=== PATIENT | female | born 1940 | race Caucasian/White ===

== ENCOUNTER 2021-06-15 05:47 | Inpatient (IN) | payer MEDICARE, BC ==
[2021-06-08 16:29] LABS: BASOPHILS # (AUTO) 0.1 X10'3 (0-0.2); BASOPHILS % (AUTO) 0.8 % (0-1); EOSINOPHILS % (AUTO) 0 % (0-6); LYMPHOCYTES # (AUTO) 1.4 X10'3 (1.1-4.8); LYMPHOCYTES % (AUTO) 11.9 % (21-51); MEAN CORPUSCULAR HEMOGLOBIN 25.9 PG (27.0-31.0); MEAN CORPUSCULAR HGB CONC 31.4 g/dL (33.0-36.5); MEAN CORPUSCULAR VOLUME 82.3 FL (78-98); MEAN PLATELET VOLUME 7.3 FL (7.4-10.4); MONOCYTES # (AUTO) 0.5 X10'3 (0-0.9); MONOCYTES % (AUTO) 4.7 % (2-12); NEUTROPHILS # (AUTO) 9.6 X10'3 (1.8-7.7); NEUTROPHILS % (AUTO) 82.6 % (42-75); PRE OP PLATELET COUNT 583 X10'3 (140-440); RED BLOOD COUNT 4.13 X10'6 (4.20-5.60); RED CELL DISTRIBUTION WIDTH 19.3 % (11.5-14.5)
[2021-06-08 16:31] LABS: PRE OP HEMOGLOBIN 10.7 g/dL (12.0-16.0)
[2021-06-08 16:42] LABS: ALBUMIN 3.3 G/DL (3.4-5.0); ALBUMIN/GLOBULIN RATIO 0.8 (1.1-1.5); ALKALINE PHOSPHATASE 86 IU/L (46-116); BLOOD UREA NITROGEN 18 MG/DL (7-18); BUN/CREATININE RATIO 18.4 (6.6-38.0); CALCIUM 9.3 MG/DL (8.5-10.1); CHLORIDE 104 MMOL/L (99-107); CREATININE 0.98 MG/DL (0.40-0.90); PRE OP ALT 19 U/L (30-65); PRE OP ANION GAP 6 (8-16); PRE OP AST 21 U/L (10-37); PRE OP BILIRUB, TOTAL 0.4 MG/DL (0.0-1.0); PRE OP POTASSIUM 4.9 MMOL/L (3.4-5.1); PRE OP SODIUM 139 MMOL/L (135-145); TOTAL CARBON DIOXIDE 29.2 MMOL/L (24-32); TOTAL PROTEIN 7.7 G/DL (6.4-8.2); eGFR 54 ML/MIN
[2021-06-08 16:44] LABS: PRE OP GLUCOSE 131 MG/DL (70-104)
[2021-06-08 17:24] LABS: ANISOCYTOSIS 2+; PLATELET ESTIMATE INCREASED; TOTAL CELLS COUNTED 100
[2021-06-08 17:26] LABS: POLYCHROMASIA FEW; SCHISTOCYTES FEW; TEAR DROP CELLS FEW
[2021-06-08 17:27] LABS: HYPOCHROMASIA 1+; TARGET CELLS FEW
[~2021-06-15] VITALS: Ht 157.5 cm; Wt 50.1 kg
[2021-06-15] VITALS (22 sets, daily range): BP systolic 99–141; BP diastolic 44–77
[~2021-06-15 05:47] MED LIST: CIPR-259 PO; CITA-109 PO; INDOCYANINE GREEN 25 MG/10 ML VIAL IV ONE; MALTODEXTRIN/FRUCTOSE 0.68 KCAL/ML LIQUID 296ML BOTTLE PO ONE; METR-159 PO; PRED5TAB PO; XAL0.005OS EACHEYE; ceFOXitin 2GM-NS 100mL ADDvant 100 ML IV ONE; famotidine 20mg tablet PO ONE; heparin, porcine 5000 units/ml vial SQ ONE; metroNIDAZOLE-Flagyl 500mg/NS 100ML IVPB IV ONE; ringers solution, lacted 1,000 ML IV SCH
[2021-06-15] MEDS ORDERED: LIDOcaine 1% (10mg/ml) 2ml vial ONE (06:35)
[2021-06-15] MEDS ORDERED: LIDOcaine 1% W/epiNEPHrine 1:100,000 20ml vial ONE (07:10)
[2021-06-15] MEDS ORDERED: BUPIVAcaine/PF 2.5mg/ml (0.25%) 10ml vial ONE (07:10)
[2021-06-15] MEDS ORDERED: mineral oil 10ml sterile, topical TP ONE ×2 (07:16→08:27)
[2021-06-15] MEDS ORDERED: midazolam 1 mg/ML 2ml injection ONE (07:28)
[2021-06-15] MEDS ORDERED: fentaNYL /PF 50mcg/ml 5ml ampule ONE (07:28)
[2021-06-15] MEDS ORDERED: sevoflurane 250ml liquid IH ONE (07:46)
[2021-06-15] MEDS ORDERED: LIDOcaine 2% (20mg/ml) 5ml vial ONE (08:48)
[2021-06-15] MEDS ORDERED: rocuronium 10mg/ml inj IV ONE ×2 (08:48→09:29)
[2021-06-15] MEDS ORDERED: propofol inj 20 ML IV ONE (08:48)
[2021-06-15] MEDS ORDERED: hydrocortisone sod succ/PF 100mg/2ml inj. ONE (08:48)
[2021-06-15] MEDS ORDERED: ondansetron/PF 4mg/2ml inj ONE (08:48)
[2021-06-15] MEDS ORDERED: proCHLORperazine 10 MG/2 ml inj IV PRN (09:20)
[2021-06-15] MEDS ORDERED: HYDROmorphone/PF 0.2 MG/ML SYRINGE IV PRN ×2 (09:20)
[2021-06-15] MEDS ORDERED: hydrALAZINE 20mg/ml inj. IV PRN (09:20)
[2021-06-15] MEDS ORDERED: labetalol 20mg/4ml (5mg/ml) syringe IV PRN (09:20)
[2021-06-15] MEDS ORDERED: ondansetron/PF 4mg/2ml inj IV PRN (09:20)
[2021-06-15] MEDS ORDERED: acetaminophen 1,000mg/100ml IV 100 ML IV PRN (09:20)
[2021-06-15] MEDS ORDERED: meperidine/PF 25mg/ml syringe IV PRN (09:20)
[2021-06-15] MEDS ORDERED: ringers solution, lacted 1,000 ML IV SCH (09:20)
[2021-06-15] MEDS ORDERED: morphine 2 MG/ML inj. syringe IV PRN (09:20)
[2021-06-15] MEDS ORDERED: ePHEDrine 50MG/ML INJ. ONE (09:30)
[2021-06-15] MEDS ORDERED: povidone-iodine 10% topical ointment 28.4gm TP ONE (10:17)
[2021-06-15] MEDS ORDERED: sugammadex 200mg/2ml injection IV ONE (11:17)
--- NOTE | 2021-06-15 11:47 | NUR ---
Received from OR via BED IN STABLE CONDITION, accompanied by Anesthesiologist and FRAME NAILER report given by FRAME NAILER AND Anesthesiolgist. Addendum: 06/15/21 at 1226 by Mariela Evans RN Amended: Links added.
[2021-06-15] MEDS ORDERED: naloxone 0.4 mg/ml inj IV PRN (12:00)
[2021-06-15] MEDS ORDERED: CADD PCA waste documentation MC PRN (12:00)
[2021-06-15] MEDS: morphine 4 MG/ML inj SYRINge IV PRN ×2 (12:16→12:37)
[2021-06-15] MEDS ORDERED: HYDROmorph./NS 0.2 mg/ml CADD 100 ML IV SCH (12:30)
[2021-06-15] MEDS ORDERED: fluconazole-Diflucan 200mg/NS 100 ML IV ONE (13:00)
--- NOTE | 2021-06-15 13:47 | NUR ---
PATIENT TRANSFERRED FROM PACU IN STABLE CONDITION TO ROOM AFTER REPORT GIVEN. PATIENT TRANSPORTED VIA BED WITH RN X2. Addendum: 06/15/21 at 1353 by Mariela Evans RN Amended: Links added.
[2021-06-15] MEDS: hydrocortisone sod succ/PF 100mg/2ml inj. IV SCH ×2 (14:00→20:00)
[2021-06-15] MEDS: metroNIDAZOLE-Flagyl 500mg/NS 100 ML IV SCH ×2 (15:24→22:52)
[2021-06-15] MEDS: potassium CL 20mEq in D5-1/2NS 1,000 ML IV SCH (15:25)
[2021-06-15] MEDS: ceFOXitin 1 GM/D5W 50mL IVPB 100 ML IV SCH (16:29)
[2021-06-15] MEDS: morphine 2 MG/ML inj. syringe IV PRN ×2 (17:52→22:50)
--- NOTE | 2021-06-15 18:22 | NUR ---
Problems reprioritized. Patient report given, questions answered & plan of care reviewed with Jones GARZA.
[2021-06-15] MEDS: heparin, porcine 5000 units/ml vial SQ SCH (20:01)
[2021-06-16] MEDS: ceFOXitin 1 GM/D5W 50mL IVPB 100 ML IV SCH (00:04)
--- NOTE | 2021-06-16 01:20 | NUR ---
PT ARRIVED TO THE FLOOR FROM PACU @ 1350 ON DAYS. WHEN I STARTED THE PT HAD ONLY HAD 3 FREQUENT VITALS DONE. WE FINISHED ALL HER FREQUENT VITALS AND CHARTED THEM ON [employer].
[2021-06-16] MEDS: hydrocortisone sod succ/PF 100mg/2ml inj. IV SCH ×3 (02:16→14:40)
[2021-06-16] MEDS: morphine 2 MG/ML inj. syringe IV PRN ×4 (03:49→22:13)
[2021-06-16 04:00] VITALS: BP 124/60
[2021-06-16] MEDS: potassium CL 20mEq in D5-1/2NS 1,000 ML IV SCH ×3 (04:47→22:56)
--- NOTE | 2021-06-16 06:37 | NUR ---
Patient in room [facility]. I have received report from Jones GARZA and had the opportunity to ask questions and assume patient care.
[2021-06-16 06:42] LABS: BASOPHILS % (AUTO) 0.1 % (0-1); EOSINOPHILS % (AUTO) 0 % (0-6); HEMATOCRIT 27.8 % (35.0-45.0); HEMOGLOBIN 8.7 g/dl (12.0-16.0); LYMPHOCYTES # (AUTO) 0.6 X10'3 (1.1-4.8); LYMPHOCYTES % (AUTO) 4.6 % (21-51); MEAN CORPUSCULAR HEMOGLOBIN 25.8 PG (27.0-31.0); MEAN CORPUSCULAR HGB CONC 31.4 g/dL (33.0-36.5); MONOCYTES # (AUTO) 0.6 X10'3 (0-0.9); MONOCYTES % (AUTO) 4.4 % (2-12); NEUTROPHILS # (AUTO) 11.8 X10'3 (1.8-7.7); NEUTROPHILS % (AUTO) 90.9 % (42-75); PLATELET COUNT 357 X10'3 (140-440); RED BLOOD COUNT 3.39 X10'6 (4.20-5.60); RED CELL DISTRIBUTION WIDTH 20.4 % (11.5-14.5)
[2021-06-16 06:46] LABS: ALBUMIN 2.4 G/DL (3.4-5.0); ANION GAP 7 (8-16); BLOOD UREA NITROGEN 6 MG/DL (7-18); BUN/CREATININE RATIO 9.2 (6.6-38.0); CALCIUM 7.1 MG/DL (8.5-10.1); CHLORIDE 109 MMOL/L (99-107); CREATININE 0.65 MG/DL (0.40-0.90); SODIUM 141 MMOL/L (135-145); TOTAL CARBON DIOXIDE 24.7 MMOL/L (24-32); eGFR 87 ML/MIN
--- NOTE | 2021-06-16 06:46 | NUR ---
Problems reprioritized. Patient report given, questions answered & plan of care reviewed with HERMINIA. Addendum: 06/16/21 at 0646 by Franklin Bass RN Amended: Links added.
[2021-06-16 06:51] LABS: GLUCOSE 152 MG/DL (70-104); POTASSIUM 4.4 MMOL/L (3.5-5.1)
[2021-06-16 07:00] VITALS: BP 110/54
[2021-06-16] MEDS: fluconazole-Diflucan 100MG/NS 50 ML IV SCH (07:47)
[2021-06-16] MEDS: heparin, porcine 5000 units/ml vial SQ SCH ×2 (07:47→20:20)
[2021-06-16] MEDS: metroNIDAZOLE-Flagyl 500mg/NS 100 ML IV SCH ×3 (07:48→23:57)
[2021-06-16 08:00] LABS: ANISOCYTOSIS 3+; HYPOCHROMASIA 1+; MICROCYTOSIS 1+; PLATELET ESTIMATE NORMAL
[2021-06-16] MEDS ORDERED: ceFOXitin 1 GM/D5W 50mL IVPB 100 ML IV ONE (08:00)
[2021-06-16] MEDS ORDERED: ceFOXitin inj 1,000 MG in dextrose 5%-water 100 ML IV SCH (08:00)
[2021-06-16 11:08] LABS: PREALBUMIN 18.6 MG/DL (19-36)
[2021-06-16 11:27] VITALS: BP 129/60
[2021-06-16] MEDS ORDERED: citalopram 20mg tablet PO ONE (14:50)
[2021-06-16] MEDS: ceFOXitin inj 1,000 MG in normal saline 100ml IV soln 100 ML IV SCH (16:40)
[2021-06-16 18:00] VITALS: BP 137/54
--- NOTE | 2021-06-16 18:22 | NUR ---
Problems reprioritized. Patient report given, questions answered & plan of care reviewed with ALISON ROSAS RN.
--- NOTE | 2021-06-16 18:30 | NUR ---
Patient in room [facility]. I have received report from HERMINIA GARZA and had the opportunity to ask questions and assume patient care.
[2021-06-16] MEDS: latanoprost 0.005% 2.5ml ophthalmic drops EACHEYE SCH (20:25)
[2021-06-17] VITALS: BP 142/64
[2021-06-17] MEDS: ceFOXitin inj 1,000 MG in normal saline 100ml IV soln 100 ML IV SCH ×3 (01:34→16:46)
[2021-06-17] MEDS: morphine 2 MG/ML inj. syringe IV PRN ×3 (04:59→19:35)
[2021-06-17 06:25] LABS: BASOPHILS % (AUTO) 0.1 % (0-1); EOSINOPHILS # (AUTO) 0.1 X10'3 (0-0.9); HEMATOCRIT 27.5 % (35.0-45.0); HEMOGLOBIN 8.5 g/dl (12.0-16.0); LYMPHOCYTES # (AUTO) 2.3 X10'3 (1.1-4.8); LYMPHOCYTES % (AUTO) 16.8 % (21-51); MEAN CORPUSCULAR HEMOGLOBIN 25.5 PG (27.0-31.0); MEAN CORPUSCULAR VOLUME 82.1 FL (78-98); MEAN PLATELET VOLUME 7.7 FL (7.4-10.4); MONOCYTES # (AUTO) 1.4 X10'3 (0-0.9); MONOCYTES % (AUTO) 10.3 % (2-12); NEUTROPHILS # (AUTO) 9.6 X10'3 (1.8-7.7); NEUTROPHILS % (AUTO) 71.8 % (42-75); PLATELET COUNT 353 X10'3 (140-440); RED BLOOD COUNT 3.35 X10'6 (4.20-5.60); RED CELL DISTRIBUTION WIDTH 20.1 % (11.5-14.5); WHITE BLOOD COUNT 13.4 X10'3 (4.5-11.0)
--- NOTE | 2021-06-17 06:30 | NUR ---
Problems reprioritized. Patient report given, questions answered & plan of care reviewed with HERMINIA GARZA.
[2021-06-17 06:52] LABS: ALBUMIN 2.4 G/DL (3.4-5.0); ANION GAP 5 (8-16); BLOOD UREA NITROGEN 5 MG/DL (7-18); BUN/CREATININE RATIO 6.9 (6.6-38.0); CALCIUM 7.5 MG/DL (8.5-10.1); CHLORIDE 112 MMOL/L (99-107); CREATININE 0.72 MG/DL (0.40-0.90); GLUCOSE 91 MG/DL (70-104); POTASSIUM 3.6 MMOL/L (3.5-5.1); SODIUM 142 MMOL/L (135-145); TOTAL CARBON DIOXIDE 24.8 MMOL/L (24-32); eGFR 78 ML/MIN
[2021-06-17] MEDS: metroNIDAZOLE-Flagyl 500mg/NS 100 ML IV SCH ×2 (07:33→16:46)
[2021-06-17] MEDS: citalopram 20mg tablet PO SCH (07:33)
[2021-06-17] MEDS: fluconazole-Diflucan 100MG/NS 50 ML IV SCH (07:33)
[2021-06-17] MEDS: predniSONE 5mg tablet PO SCH (07:34)
[2021-06-17] MEDS: heparin, porcine 5000 units/ml vial SQ SCH ×2 (07:34→19:34)
[2021-06-17 07:43] LABS: ANISOCYTOSIS 3+; PLATELET ESTIMATE NORMAL
[2021-06-17 07:44] LABS: MICROCYTOSIS 1+
[2021-06-17 07:47] VITALS: BP 141/60
[2021-06-17] MEDS: ondansetron/PF 4mg/2ml inj IV PRN ×2 (10:20→19:34)
[2021-06-17 11:07] VITALS: BP 142/62
[2021-06-17 13:28] LABS: C-REACTIVE PROTEIN 6.36 MG/DL (0.0-0.5)
[2021-06-17] MEDS: potassium CL 20mEq in D5-1/2NS 1,000 ML IV SCH (17:20)
[2021-06-17 19:07] VITALS: BP 148/63
[2021-06-17] MEDS: latanoprost 0.005% 2.5ml ophthalmic drops EACHEYE SCH (19:35)
--- NOTE | 2021-06-17 22:00 | NUR ---
Patient in room [facility]. I have received report from HERMINIA GARZA and had the opportunity to ask questions and assume patient care.
[2021-06-17 23:32] VITALS: BP 142/67
[2021-06-18] MEDS: metroNIDAZOLE-Flagyl 500mg/NS 100 ML IV SCH ×4 (00:41→23:31)
[2021-06-18] MEDS: ondansetron/PF 4mg/2ml inj IV PRN ×2 (01:08→18:57)
--- NOTE | 2021-06-18 01:18 | NUR ---
patient c/o nausea, emesis of 100mls brownish color. medicated with zofran with some relief will continue to monitor
[2021-06-18] MEDS: ceFOXitin inj 1,000 MG in normal saline 100ml IV soln 100 ML IV SCH ×3 (01:58→16:56)
[2021-06-18] MEDS: morphine 2 MG/ML inj. syringe IV PRN ×5 (04:59→23:44)
--- NOTE | 2021-06-18 05:21 | NUR ---
patient nauseous and bloated, ambulated 100ft very fatigued. Dr Lyn paged for alternate nausea med. order received for Reglan, will continue to monitor
[2021-06-18 06:07] LABS: BASOPHILS # (AUTO) 0.1 X10'3 (0-0.2); BASOPHILS % (AUTO) 0.8 % (0-1); EOSINOPHILS # (AUTO) 0.3 X10'3 (0-0.9); EOSINOPHILS % (AUTO) 2.1 % (0-6); HEMATOCRIT 31.9 % (35.0-45.0); HEMOGLOBIN 10.2 g/dl (12.0-16.0); LYMPHOCYTES # (AUTO) 2.3 X10'3 (1.1-4.8); LYMPHOCYTES % (AUTO) 15.6 % (21-51); MEAN CORPUSCULAR HGB CONC 31.8 g/dL (33.0-36.5); MEAN CORPUSCULAR VOLUME 81.9 FL (78-98); MEAN PLATELET VOLUME 7.7 FL (7.4-10.4); MONOCYTES # (AUTO) 1.5 X10'3 (0-0.9); MONOCYTES % (AUTO) 10.5 % (2-12); NEUTROPHILS # (AUTO) 10.3 X10'3 (1.8-7.7); PLATELET COUNT 391 X10'3 (140-440); RED CELL DISTRIBUTION WIDTH 20.5 % (11.5-14.5); WHITE BLOOD COUNT 14.5 X10'3 (4.5-11.0)
[2021-06-18 06:27] LABS: ALBUMIN 2.1 G/DL (3.4-5.0); ANION GAP 6 (8-16); BLOOD UREA NITROGEN 5 MG/DL (7-18); BUN/CREATININE RATIO 6.8 (6.6-38.0); CALCIUM 7.2 MG/DL (8.5-10.1); CHLORIDE 108 MMOL/L (99-107); CREATININE 0.74 MG/DL (0.40-0.90); POTASSIUM 3.6 MMOL/L (3.5-5.1); SODIUM 138 MMOL/L (135-145); TOTAL CARBON DIOXIDE 24.5 MMOL/L (24-32); eGFR 75 ML/MIN
[2021-06-18 06:30] LABS: GLUCOSE 109 MG/DL (70-104)
--- NOTE | 2021-06-18 06:43 | NUR ---
Problems reprioritized. Patient report given, questions answered & plan of care reviewed with Heather GARZA.
[2021-06-18 07:10] VITALS: BP 112/51
[2021-06-18] MEDS: potassium CL 20mEq in D5-1/2NS 1,000 ML IV SCH (07:41)
[2021-06-18] MEDS: heparin, porcine 5000 units/ml vial SQ SCH ×2 (07:44→21:23)
[2021-06-18] MEDS: citalopram 20mg tablet PO SCH (07:45)
[2021-06-18] MEDS: predniSONE 5mg tablet PO SCH (07:45)
[2021-06-18] MEDS ORDERED: albumin (human) 25% 100 ML IV solution IV ONE (08:35)
--- NOTE | 2021-06-18 08:37 | NUR ---
Paged PICC RN for PICC placement. Also, Spoke to Radha with dietary regarding consult for TPN
--- NOTE | 2021-06-18 09:21 | NUR ---
TPN consult: Pt admit for colovesicular fistula repair. Pt s/p sigmoid colectomy POD #3. Pt on a clear liquid diet with 25% PO intake first two documented meals however currently documented as NPO despite active diet order. TC to RN to inquire about diet order, RN to clarify with MD. DRAKEM 06/14, with a post-op ileus per MD note. Pt pending PICC placement at this time and to begin TPN. Recommendations below have been d/w clinical pharmacist. Will continue to follow closely. Recommendations: 1) Once PICC placed, continuous 2:1 Clinimix-E 03/26 with goal rate of 60 mL/hr with additional 125 mL 20% intralipids at 10.42 mL/hr for 12 hours. In total to provide 1565 mL total volume/day, 1517 kcal, 72 g AA, 288 g dextrose (3.95 mg/kg/min dext load), and 25 g lipids 2) Prealbumin and TG q Tuesday/ 3) Daily weights 4) Advance to low residue diet as medically indicated 5) Bowel care per rx Addendum: 06/18/21 at [address] Amended: Links added.
[2021-06-18] MEDS: fluconazole-Diflucan 100MG/NS 50 ML IV SCH (10:52)
[2021-06-18 11:00] VITALS: BP 132/59
--- NOTE | 2021-06-18 14:49 | NUR ---
F/u: Received TC from clinical pharmacist that PICC line unable to be placed today and pending d/w MD regarding possible initiation of PPN while pending PICC placement. PPN recommendations below for IF pt to receive PPN. TPN consult: Pt admit for colovesicular fistula repair. Pt s/p sigmoid colectomy POD #3. Pt on a clear liquid diet with 25% PO intake first two documented meals however currently documented as NPO despite active diet order. TC to RN to inquire about diet order, RN to clarify with MD. RAJNI 06/14, with a post-op ileus per MD note. Pt pending PICC placement at this time and to begin TPN. Recommendations below have been d/w clinical pharmacist. Will continue to follow closely. Recommendations: 1) Once PICC placed, continuous 2:1 Clinimix-E 5/20 with goal rate of 60 mL/hr with additional 125 mL 20% intralipids at 10.42 mL/hr for 12 hours. In total to provide 1565 mL total volume/day, 1517 kcal, 72 g AA, 288 g dextrose (3.95 mg/kg/min dext load), and 25 g lipids 2) IF PPN: continuous 2:1 Clinimix-E 4.25/10 with goal rate of 85 mL/hr with additional 200 mL 20% intralipids to run at 16.67 mL/hr for 12 hours to provide 2240 mL total volume/day, 1440 kcal, 86.7 g AA, 204 g dextrose (2.80 mg/kg/min dext load), and 40 g lipids 3) Prealbumin and TG q Tuesday/ 4) Daily weights 5) Advance to low residue diet as medically indicated 6) Bowel care per rx Addendum: 06/18/21 at [address] Amended: Links added. Addendum: 06/18/21 at [address] Received TC from RN who states MD would like to start PPN until PICC access available for TPN. PPN recommendations were d/w clinical pharmacist.
--- NOTE | 2021-06-18 14:52 | NUR ---
Telephone call to Dr. Jc regarding the PICC RN not coming in today. Asked if he would like to start PPN until the patient has PICC access. He said yes, dietary notified. Will start PPN once orders are placed and it is sent up from pharmacy.
[2021-06-18] MEDS ORDERED: magnesium 2GM in 50ml NS 50 ML IV PRN (15:05)
[2021-06-18] MEDS ORDERED: magnesium 4gm in 100ml NS 100 ML IV PRN (15:05)
[2021-06-18] MEDS ORDERED: potassium Cl 20 mEq SR tablet PO PRN ×2 (15:05)
[2021-06-18] MEDS ORDERED: potassium Cl 40MEQ/1/2NS 520ml 520 ML IV PRN ×2 (15:05)
[2021-06-18] MEDS ORDERED: magnesium Cl slow-release 64mg tablet PO PRN (15:05)
[2021-06-18 16:07] LABS: MAGNESIUM 1.9 MG/DL (1.5-2.4); PHOSPHORUS 1.4 MG/DL (2.3-4.5); PREALBUMIN 14.3 MG/DL (19-36)
[2021-06-18] MEDS ORDERED: MVI, adult No.4 with vit. K 5 ML, ZINC/COPPER/MANGANESE/SELENIUM 0.5 ML, chromic chlori... IV SCH ×4 (17:00)
[2021-06-18 18:00] VITALS: BP 118/67
[2021-06-18] MEDS: normal saline 1000ml 1,000 ML IV SCH (18:35)
--- NOTE | 2021-06-18 18:53 | NUR ---
Problems reprioritized. Patient report given, questions answered & plan of care reviewed with KAYLA Kruse.
--- NOTE | 2021-06-18 18:56 | NUR ---
Spoke with pharmacist regarding PPN orders. he said it is okay to give the lipids through the PIV, and these are correct orders for a PIV.
[2021-06-18] MEDS: fat emulsion 20% inj. 100 ML IV SCH (20:00)
[2021-06-18] MEDS: MESSAGE TO NURSING IV SCH (20:00)
[2021-06-18] MEDS: K and/or MAG REPLACEMENT MC SCH (20:00)
[2021-06-18] MEDS: latanoprost 0.005% 2.5ml ophthalmic drops EACHEYE SCH (21:22)
--- NOTE | 2021-06-18 21:44 | NUR ---
No PICC line, unable to begin intralipids per orders.
[2021-06-18] MEDS: metoclopramide 5 mg/ml inj IV PRN (23:44)
[2021-06-18 23:48] VITALS: BP 146/57
[2021-06-19] MEDS: HYDROcodone/acetaminophen 5mg/325mg tablet PO PRN ×2 (01:21→08:55)
[2021-06-19] MEDS: ondansetron/PF 4mg/2ml inj IV PRN ×2 (01:25→20:31)
[2021-06-19] MEDS: ceFOXitin inj 1,000 MG in normal saline 100ml IV soln 100 ML IV SCH ×4 (01:52→16:03)
[2021-06-19] MEDS ORDERED: fat emulsion 20% inj. 100 ML IV SCH (02:00)
--- NOTE | 2021-06-19 06:06 | NUR ---
Problems reprioritized. Patient report given, questions answered & plan of care reviewed with KAYLA Oneil.
[2021-06-19 07:44] VITALS: BP 127/56
[2021-06-19 07:45] LABS: BASOPHILS # (AUTO) 0.1 X10'3 (0-0.2); BASOPHILS % (AUTO) 0.7 % (0-1); EOSINOPHILS # (AUTO) 0.3 X10'3 (0-0.9); EOSINOPHILS % (AUTO) 2.7 % (0-6); HEMATOCRIT 30.8 % (35.0-45.0); HEMOGLOBIN 9.9 g/dl (12.0-16.0); LYMPHOCYTES # (AUTO) 2.1 X10'3 (1.1-4.8); LYMPHOCYTES % (AUTO) 17.8 % (21-51); MEAN CORPUSCULAR HEMOGLOBIN 26.4 PG (27.0-31.0); MEAN CORPUSCULAR HGB CONC 32.2 g/dL (33.0-36.5); MEAN CORPUSCULAR VOLUME 81.9 FL (78-98); MEAN PLATELET VOLUME 7.5 FL (7.4-10.4); MONOCYTES # (AUTO) 1.1 X10'3 (0-0.9); MONOCYTES % (AUTO) 9.7 % (2-12); NEUTROPHILS # (AUTO) 8.1 X10'3 (1.8-7.7); NEUTROPHILS % (AUTO) 69.1 % (42-75); PLATELET COUNT 374 X10'3 (140-440); RED BLOOD COUNT 3.76 X10'6 (4.20-5.60); RED CELL DISTRIBUTION WIDTH 20.5 % (11.5-14.5); WHITE BLOOD COUNT 11.8 X10'3 (4.5-11.0)
[2021-06-19] MEDS: heparin, porcine 5000 units/ml vial SQ SCH ×2 (08:00→20:33)
[2021-06-19] MEDS: K and/or MAG REPLACEMENT MC SCH ×2 (08:00→20:00)
[2021-06-19 08:10] LABS: ALANINE AMINOTRANSFERASE 10 U/L (12-78); ALBUMIN 2.5 G/DL (3.4-5.0); ALBUMIN/GLOBULIN RATIO 0.8 (1.1-1.5); ALKALINE PHOSPHATASE 50 IU/L (46-116); ANION GAP 4 (8-16); ASPARTATE AMINO TRANSFERASE 15 U/L (10-37); BILIRUBIN,TOTAL 0.8 MG/DL (0.1-1.0); BLOOD UREA NITROGEN 4 MG/DL (7-18); BUN/CREATININE RATIO 5.7 (6.6-38.0); CALCIUM 7.3 MG/DL (8.5-10.1); CHLORIDE 105 MMOL/L (99-107); POTASSIUM 3.3 MMOL/L (3.5-5.1); SODIUM 137 MMOL/L (135-145); TOTAL CARBON DIOXIDE 27.7 MMOL/L (24-32); TOTAL PROTEIN 5.6 G/DL (6.4-8.2); eGFR 80 ML/MIN
[2021-06-19 08:14] LABS: GLUCOSE 105 MG/DL (70-104)
[2021-06-19] MEDS: predniSONE 5mg tablet PO SCH (08:55)
[2021-06-19] MEDS: citalopram 20mg tablet PO SCH (08:55)
[2021-06-19 09:00] LABS: ANISOCYTOSIS 3+; HYPOCHROMASIA 1+; PLATELET ESTIMATE NORMAL; POLYCHROMASIA 1+
--- NOTE | 2021-06-19 09:00 | NUR ---
IV infiltrated this AM, PICC RN will called said she will be here in the next 15min. Patients IV piggybacks will be hung once PICC Line access is established.
--- NOTE | 2021-06-19 09:57 | NUR ---
PICC RN at bedside
[2021-06-19 11:00] VITALS: BP 124/64
[2021-06-19] MEDS: metroNIDAZOLE-Flagyl 500mg/NS 100 ML IV SCH ×2 (11:31→16:03)
[2021-06-19] MEDS: normal saline 1000ml 1,000 ML IV SCH (11:31)
--- NOTE | 2021-06-19 11:56 | NUR ---
Updated Dr. Jc with lab values, and patient status. No new orders.
--- NOTE | 2021-06-19 12:26 | NUR ---
F/u: Noted PICC line was placed today. TC to clinical pharmacist who reports currently working on changing PN to TPN. Noted per hydrogen braze furnace operator intralipids not given overnight d/t no PICC placement, though per clinical pharmacist intralipids are okay to be given via PIV, d/w clinical pharmacist. TPN recommendations have been updated and d/w clinical pharmacist, see below. Will continue to follow closely. Recommendations: 1) Continuous 2:1 Clinimix-E 03/26 with goal rate of 63 mL/hr with additional 100 mL 20% intralipids at 8.33 mL/hr for 12 hours. In total to provide 1612 mL total volume/day, 1530 kcal, 75.6 g AA, 302.4 g dextrose (4.15 mg/kg/min dext load), and 20 g lipids 2) Prealbumin and TG q Tuesday/ 3) Daily weights 4) Advance to low residue diet as medically indicated 5) Bowel care per rx Addendum: 06/19/21 at [address] Amended: Links added.
[2021-06-19] MEDS ORDERED: Dextrose 10%-water IV solution 1,000 ML IV PRN (12:45)
[2021-06-19] MEDS: fluconazole-Diflucan 100MG/NS 50 ML IV SCH (12:49)
[2021-06-19] MEDS: MVI, adult No.4 with vit. K 5 ML, ZINC/COPPER/MANGANESE/SELENIUM 0.5 ML, chromic chlori... IV SCH ×4 (15:14)
--- NOTE | 2021-06-19 18:27 | NUR ---
Patient in room [facility]. I have received report from Clarice GARZA and had the opportunity to ask questions and assume patient care.
--- NOTE | 2021-06-19 18:30 | NUR ---
Problems reprioritized. Patient report given, questions answered & plan of care reviewed with KAYLA Mon.
[2021-06-19 19:15] VITALS: BP 143/63
[2021-06-19] MEDS: MESSAGE TO NURSING IV SCH (20:00)
[2021-06-19] MEDS: morphine 2 MG/ML inj. syringe IV PRN (20:32)
[2021-06-19] MEDS: fat emulsion 20% inj. 100 ML IV SCH (20:55)
[2021-06-19] MEDS: latanoprost 0.005% 2.5ml ophthalmic drops EACHEYE SCH (21:00)
[2021-06-20] VITALS: BP 138/61
[2021-06-20] MEDS: ceFOXitin inj 1,000 MG in normal saline 100ml IV soln 100 ML IV SCH ×4 (01:50→23:55)
[2021-06-20] MEDS: metroNIDAZOLE-Flagyl 500mg/NS 100 ML IV SCH ×4 (01:50→23:58)
[2021-06-20] MEDS: morphine 2 MG/ML inj. syringe IV PRN ×6 (01:53→23:49)
[2021-06-20] MEDS: metoclopramide 5 mg/ml inj IV PRN ×2 (01:53→07:58)
[2021-06-20] MEDS ORDERED: mag hydrox/Alum hydrox/simeth 30ml oral suspension PO PRN (04:00)
[2021-06-20 05:56] LABS: BASOPHILS # (AUTO) 0.1 X10'3 (0-0.2); BASOPHILS % (AUTO) 0.8 % (0-1); EOSINOPHILS # (AUTO) 0.2 X10'3 (0-0.9); EOSINOPHILS % (AUTO) 1.3 % (0-6); HEMATOCRIT 31.4 % (35.0-45.0); HEMOGLOBIN 9.9 g/dl (12.0-16.0); LYMPHOCYTES # (AUTO) 1.3 X10'3 (1.1-4.8); LYMPHOCYTES % (AUTO) 11.1 % (21-51); MEAN CORPUSCULAR HEMOGLOBIN 26.2 PG (27.0-31.0); MEAN CORPUSCULAR HGB CONC 31.5 g/dL (33.0-36.5); MEAN CORPUSCULAR VOLUME 83.3 FL (78-98); MEAN PLATELET VOLUME 7.8 FL (7.4-10.4); MONOCYTES # (AUTO) 1.3 X10'3 (0-0.9); MONOCYTES % (AUTO) 10.5 % (2-12); NEUTROPHILS # (AUTO) 9.2 X10'3 (1.8-7.7); NEUTROPHILS % (AUTO) 76.3 % (42-75); PLATELET COUNT 321 X10'3 (140-440); RED BLOOD COUNT 3.77 X10'6 (4.20-5.60); RED CELL DISTRIBUTION WIDTH 20.9 % (11.5-14.5)
[2021-06-20 06:23] LABS: ALANINE AMINOTRANSFERASE 6 U/L (12-78); ALBUMIN 2.3 G/DL (3.4-5.0); ALBUMIN/GLOBULIN RATIO 0.7 (1.1-1.5); ALKALINE PHOSPHATASE 55 IU/L (46-116); ANION GAP 5 (8-16); ASPARTATE AMINO TRANSFERASE 14 U/L (10-37); BILIRUBIN,TOTAL 0.5 MG/DL (0.1-1.0); BLOOD UREA NITROGEN 14 MG/DL (7-18); BUN/CREATININE RATIO 19.2 (6.6-38.0); CALCIUM 7.6 MG/DL (8.5-10.1); CHLORIDE 107 MMOL/L (99-107); CREATININE 0.73 MG/DL (0.40-0.90); GLUCOSE 145 MG/DL (70-104); PHOSPHORUS 1.9 MG/DL (2.3-4.5); POTASSIUM 3.8 MMOL/L (3.5-5.1); SODIUM 140 MMOL/L (135-145); TOTAL CARBON DIOXIDE 27.6 MMOL/L (24-32); TOTAL PROTEIN 5.6 G/DL (6.4-8.2); eGFR 77 ML/MIN
--- NOTE | 2021-06-20 06:42 | NUR ---
Patient in room [facility]. I have received report from KAYLA Mon and had the opportunity to ask questions and assume patient care.
--- NOTE | 2021-06-20 06:57 | NUR ---
Problems reprioritized. Patient report given, questions answered & plan of care reviewed with Shae GARZA.
[2021-06-20 07:00] VITALS: BP 142/65
[2021-06-20] MEDS: MVI, adult No.4 with vit. K 5 ML, ZINC/COPPER/MANGANESE/SELENIUM 0.5 ML, chromic chlori... IV SCH ×8 (07:41→22:03)
[2021-06-20] MEDS: fluconazole-Diflucan 100MG/NS 50 ML IV SCH (07:52)
[2021-06-20] MEDS: heparin, porcine 5000 units/ml vial SQ SCH ×2 (07:55→20:30)
[2021-06-20] MEDS: K and/or MAG REPLACEMENT MC SCH ×2 (08:00→20:00)
[2021-06-20] MEDS: citalopram 20mg tablet PO SCH (08:00)
[2021-06-20] MEDS: predniSONE 5mg tablet PO SCH (08:00)
[2021-06-20 09:42] LABS: C-REACTIVE PROTEIN 6.79 MG/DL (0.0-0.5)
[2021-06-20 11:00] VITALS: BP 124/59
[2021-06-20] MEDS ORDERED: potassium phosphate inj 15 MMOL in NS 250ml IV soln 250 ML IV ONE (12:30)
[2021-06-20] MEDS: ondansetron/PF 4mg/2ml inj IV PRN (14:03)
[2021-06-20 18:00] VITALS: BP 141/62
--- NOTE | 2021-06-20 18:47 | NUR ---
Problems reprioritized. Patient report given, questions answered & plan of care reviewed with KAYLA Mills.
--- NOTE | 2021-06-20 18:50 | NUR ---
Patient in room [facility]. I have received report from Shae Marcus and had the opportunity to ask questions and assume patient care.
[2021-06-20] MEDS: MESSAGE TO NURSING IV SCH (20:00)
[2021-06-20] MEDS: latanoprost 0.005% 2.5ml ophthalmic drops EACHEYE SCH (20:29)
[2021-06-20] MEDS: fat emulsion 20% inj. 100 ML IV SCH (20:52)
[2021-06-21 01:24] VITALS: BP 125/63
[2021-06-21] MEDS: morphine 2 MG/ML inj. syringe IV PRN ×8 (01:40→22:48)
[2021-06-21] MEDS: methylnaltrexone br 12mg/0.6ml inj***SubQ only SQ PRN (01:50)
--- NOTE | 2021-06-21 03:58 | NUR ---
24 hour urine collection started.
[2021-06-21] MEDS: ondansetron/PF 4mg/2ml inj IV PRN ×2 (06:38→18:02)
--- NOTE | 2021-06-21 06:47 | NUR ---
Problems reprioritized. Patient report given, questions answered & plan of care reviewed with Claire GARZA.
--- NOTE | 2021-06-21 06:56 | NUR ---
Patient in room [facility]. I have received report from KAYLA Mills and had the opportunity to ask questions and assume patient care.
[2021-06-21 07:00] VITALS: BP 106/53
[2021-06-21] MEDS: fluconazole-Diflucan 100MG/NS 50 ML IV SCH (08:00)
[2021-06-21] MEDS: K and/or MAG REPLACEMENT MC SCH ×2 (08:00→19:38)
[2021-06-21] MEDS: ceFOXitin inj 1,000 MG in normal saline 100ml IV soln 100 ML IV SCH ×3 (08:00→22:52)
[2021-06-21] MEDS: heparin, porcine 5000 units/ml vial SQ SCH ×2 (08:09→20:36)
[2021-06-21] MEDS: metoclopramide 5 mg/ml inj IV PRN (08:16)
[2021-06-21 08:21] LABS: BASOPHILS # (AUTO) 0.1 X10'3 (0-0.2); BASOPHILS % (AUTO) 0.7 % (0-1); EOSINOPHILS # (AUTO) 0.3 X10'3 (0-0.9); EOSINOPHILS % (AUTO) 2.6 % (0-6); HEMATOCRIT 29.2 % (35.0-45.0); HEMOGLOBIN 9.4 g/dl (12.0-16.0); LYMPHOCYTES # (AUTO) 1.4 X10'3 (1.1-4.8); LYMPHOCYTES % (AUTO) 11.6 % (21-51); MEAN CORPUSCULAR HEMOGLOBIN 26.3 PG (27.0-31.0); MEAN CORPUSCULAR HGB CONC 32.1 g/dL (33.0-36.5); MEAN CORPUSCULAR VOLUME 81.7 FL (78-98); MEAN PLATELET VOLUME 7.3 FL (7.4-10.4); MONOCYTES # (AUTO) 1.5 X10'3 (0-0.9); MONOCYTES % (AUTO) 13.2 % (2-12); NEUTROPHILS # (AUTO) 8.4 X10'3 (1.8-7.7); NEUTROPHILS % (AUTO) 71.9 % (42-75); PLATELET COUNT 270 X10'3 (140-440); RED BLOOD COUNT 3.57 X10'6 (4.20-5.60); RED CELL DISTRIBUTION WIDTH 21.4 % (11.5-14.5); WHITE BLOOD COUNT 11.6 X10'3 (4.5-11.0)
[2021-06-21 08:33] LABS: ALANINE AMINOTRANSFERASE 6 U/L (12-78); ALBUMIN 2.1 G/DL (3.4-5.0); ALBUMIN/GLOBULIN RATIO 0.7 (1.1-1.5); ALKALINE PHOSPHATASE 59 IU/L (46-116); ANION GAP 6 (8-16); ASPARTATE AMINO TRANSFERASE 13 U/L (10-37); BILIRUBIN,TOTAL 0.4 MG/DL (0.1-1.0); BLOOD UREA NITROGEN 22 MG/DL (7-18); BUN/CREATININE RATIO 36.1 (6.6-38.0); C-REACTIVE PROTEIN 5.21 MG/DL (0.0-0.5); CALCIUM 7.7 MG/DL (8.5-10.1); CHLORIDE 102 MMOL/L (99-107); CREATININE 0.61 MG/DL (0.40-0.90); GLUCOSE 145 MG/DL (70-104); MAGNESIUM 1.9 MG/DL (1.5-2.4); POTASSIUM 4.2 MMOL/L (3.5-5.1); SODIUM 136 MMOL/L (135-145); TOTAL CARBON DIOXIDE 28.5 MMOL/L (24-32); TOTAL PROTEIN 5.3 G/DL (6.4-8.2); eGFR > 90 ML/MIN
[2021-06-21] MEDS: predniSONE 5mg tablet PO SCH (09:13)
[2021-06-21] MEDS: metroNIDAZOLE-Flagyl 500mg/NS 100 ML IV SCH ×2 (09:13→16:09)
[2021-06-21] MEDS: citalopram 20mg tablet PO SCH (09:14)
[2021-06-21 11:00] VITALS: BP 108/42
[2021-06-21] MEDS: MVI, adult No.4 with vit. K 5 ML, ZINC/COPPER/MANGANESE/SELENIUM 0.5 ML, chromic chlori... IV SCH ×4 (15:03)
[2021-06-21] MEDS: normal saline 1000ml 1,000 ML IV SCH (16:49)
--- NOTE | 2021-06-21 18:21 | NUR ---
Problems reprioritized. Patient report given, questions answered & plan of care reviewed with Katie GARZA.
--- NOTE | 2021-06-21 18:34 | NUR ---
No c/o nausea on initial assessment, repositioned on R side. Shift report given to me by Claire GARZA. Questions asked and answered, care of patient assumed by me.
--- NOTE | 2021-06-21 19:32 | NUR ---
Zofran effective, ambulates in [place]ango w/ family. tolerates well.
[2021-06-21 19:38] VITALS: BP 132/54
[2021-06-21] MEDS: MESSAGE TO NURSING IV SCH (20:00)
[2021-06-21] MEDS: fat emulsion 20% inj. 100 ML IV SCH (20:36)
[2021-06-21] MEDS: latanoprost 0.005% 2.5ml ophthalmic drops EACHEYE SCH (21:16)
[2021-06-21 23:34] VITALS: BP 128/58
--- NOTE | 2021-06-21 23:52 | NUR ---
late entry - assessment completed at 1999. charted later in shift.
[2021-06-22] MEDS: metroNIDAZOLE-Flagyl 500mg/NS 100 ML IV SCH ×2 (00:03→10:11)
[2021-06-22] MEDS: morphine 2 MG/ML inj. syringe IV PRN ×6 (01:11→19:06)
[2021-06-22] MEDS: MVI, adult No.4 with vit. K 5 ML, ZINC/COPPER/MANGANESE/SELENIUM 0.5 ML, chromic chlori... IV SCH ×12 (05:19→20:36)
--- NOTE | 2021-06-22 06:31 | NUR ---
Patient in room [facility]. I have received report from Katie auto winder and had the opportunity to ask questions and assume patient care.
[2021-06-22 07:23] LABS: UREA NITROGEN 24HR,URINE 9.2 GM/24HR (7-20)
[2021-06-22] MEDS: ceFOXitin inj 1,000 MG in normal saline 100ml IV soln 100 ML IV SCH ×2 (07:38→17:52)
[2021-06-22] MEDS: predniSONE 5mg tablet PO SCH (07:38)
[2021-06-22] MEDS: fluconazole-Diflucan 100MG/NS 50 ML IV SCH (07:38)
[2021-06-22] MEDS: citalopram 20mg tablet PO SCH (07:38)
[2021-06-22] MEDS: heparin, porcine 5000 units/ml vial SQ SCH ×2 (07:39→20:35)
[2021-06-22 08:00] VITALS: BP 108/58
[2021-06-22] MEDS: K and/or MAG REPLACEMENT MC SCH ×2 (08:00→20:00)
[2021-06-22 08:15] LABS: BASOPHILS # (AUTO) 0.1 X10'3 (0-0.2); EOSINOPHILS # (AUTO) 0.4 X10'3 (0-0.9); HEMATOCRIT 29.2 % (35.0-45.0); HEMOGLOBIN 9.1 g/dl (12.0-16.0); LYMPHOCYTES # (AUTO) 1.3 X10'3 (1.1-4.8); LYMPHOCYTES % (AUTO) 12.3 % (21-51); MEAN CORPUSCULAR HGB CONC 31.1 g/dL (33.0-36.5); MEAN CORPUSCULAR VOLUME 83.4 FL (78-98); MEAN PLATELET VOLUME 7.6 FL (7.4-10.4); MONOCYTES # (AUTO) 1.3 X10'3 (0-0.9); MONOCYTES % (AUTO) 12.7 % (2-12); NEUTROPHILS # (AUTO) 7.1 X10'3 (1.8-7.7); PLATELET COUNT 273 X10'3 (140-440); RED CELL DISTRIBUTION WIDTH 21.5 % (11.5-14.5); WHITE BLOOD COUNT 10.2 X10'3 (4.5-11.0)
[2021-06-22 08:34] LABS: ALANINE AMINOTRANSFERASE 8 U/L (12-78); ALBUMIN 2.1 G/DL (3.4-5.0); ALBUMIN/GLOBULIN RATIO 0.6 (1.1-1.5); ALKALINE PHOSPHATASE 69 IU/L (46-116); ANION GAP 4 (8-16); ASPARTATE AMINO TRANSFERASE 18 U/L (10-37); BILIRUBIN,TOTAL 0.5 MG/DL (0.1-1.0); BLOOD UREA NITROGEN 18 MG/DL (7-18); BUN/CREATININE RATIO 22.5 (6.6-38.0); CALCIUM 7.8 MG/DL (8.5-10.1); CHLORIDE 105 MMOL/L (99-107); PHOSPHORUS 2.8 MG/DL (2.3-4.5); POTASSIUM 4.4 MMOL/L (3.5-5.1); SODIUM 138 MMOL/L (135-145); TOTAL CARBON DIOXIDE 28.9 MMOL/L (24-32); TOTAL PROTEIN 5.5 G/DL (6.4-8.2); eGFR 69 ML/MIN
[2021-06-22 08:37] LABS: GLUCOSE 143 MG/DL (70-104)
[2021-06-22 09:35] LABS: ANISOCYTOSIS 3+; PLATELET ESTIMATE NORMAL; POLYCHROMASIA FEW
[2021-06-22 11:00] VITALS: BP 130/53
--- NOTE | 2021-06-22 15:31 | NUR ---
Reassessment: TPN continues to run at goal. Per MD note, pt to continue on TPN and NPO order still active. Pt w/ PAULETTE drain on R abd. No N/V/D reported, LBM 06/14, pt has still not passed flatus per EMR. Will continue to monitor closely. Recommendations: 1) Continuous 2:1 Clinimix-E 03/26 with goal rate of 63 mL/hr with additional 100 mL 20% intralipids at 8.33 mL/hr for 12 hours. In total to provide 1612 mL total volume/day, 1530 kcal, 75.6 g AA, 302.4 g dextrose (4.15 mg/kg/min dext load), and 20 g lipids 2) Prealbumin and TG q Tuesday/ 3) Daily weights 4) Advance to low residue diet as medically indicated 5) Bowel care per rx Addendum: 06/22/21 at [address] Amended: Links added.
[2021-06-22 18:00] VITALS: BP 131/67
--- NOTE | 2021-06-22 18:20 | NUR ---
Patient in room [facility]. I have received report from KAYLA Estrada and had the opportunity to ask questions and assume patient care.
--- NOTE | 2021-06-22 18:28 | NUR ---
Problems reprioritized. Patient report given, questions answered & plan of care reviewed with Aixa GARZA.
[2021-06-22] MEDS: ondansetron/PF 4mg/2ml inj IV PRN (19:11)
[2021-06-22] MEDS: MESSAGE TO NURSING IV SCH (20:00)
[2021-06-22] MEDS: metoclopramide 5 mg/ml inj IV PRN (20:26)
[2021-06-22] MEDS: fat emulsion 20% inj. 100 ML IV SCH (20:36)
[2021-06-22] MEDS: latanoprost 0.005% 2.5ml ophthalmic drops EACHEYE SCH (20:56)
[2021-06-22 23:24] VITALS: BP 131/54
[2021-06-23] MEDS: ceFOXitin inj 1,000 MG in normal saline 100ml IV soln 100 ML IV SCH ×3 (01:00→16:49)
[2021-06-23] MEDS: ondansetron/PF 4mg/2ml inj IV PRN ×3 (02:30→20:31)
[2021-06-23] MEDS: morphine 2 MG/ML inj. syringe IV PRN ×6 (02:35→20:30)
--- NOTE | 2021-06-23 03:07 | NUR ---
Patient refusing dressing change at this time.
[2021-06-23 06:42] LABS: BASOPHILS # (AUTO) 0.1 X10'3 (0-0.2); BASOPHILS % (AUTO) 1.1 % (0-1); EOSINOPHILS # (AUTO) 0.3 X10'3 (0-0.9); EOSINOPHILS % (AUTO) 2.3 % (0-6); HEMATOCRIT 31.4 % (35.0-45.0); HEMOGLOBIN 9.9 g/dl (12.0-16.0); LYMPHOCYTES # (AUTO) 1.7 X10'3 (1.1-4.8); LYMPHOCYTES % (AUTO) 13.7 % (21-51); MEAN CORPUSCULAR HEMOGLOBIN 26.5 PG (27.0-31.0); MEAN CORPUSCULAR HGB CONC 31.6 g/dL (33.0-36.5); MEAN CORPUSCULAR VOLUME 83.8 FL (78-98); MEAN PLATELET VOLUME 7.9 FL (7.4-10.4); MONOCYTES # (AUTO) 1.9 X10'3 (0-0.9); MONOCYTES % (AUTO) 15.3 % (2-12); NEUTROPHILS # (AUTO) 8.5 X10'3 (1.8-7.7); NEUTROPHILS % (AUTO) 67.6 % (42-75); PLATELET COUNT 314 X10'3 (140-440); RED BLOOD COUNT 3.75 X10'6 (4.20-5.60); RED CELL DISTRIBUTION WIDTH 21.5 % (11.5-14.5); WHITE BLOOD COUNT 12.5 X10'3 (4.5-11.0)
[2021-06-23 07:00] VITALS: BP_SYST 108; BP_SYST 122; BP_DIAS 59; BP_DIAS 71
[2021-06-23 07:28] LABS: ALANINE AMINOTRANSFERASE 10 U/L (12-78); ALBUMIN 2.3 G/DL (3.4-5.0); ALBUMIN/GLOBULIN RATIO 0.6 (1.1-1.5); ALKALINE PHOSPHATASE 82 IU/L (46-116); ANION GAP 8 (8-16); ASPARTATE AMINO TRANSFERASE 17 U/L (10-37); BILIRUBIN,TOTAL 0.5 MG/DL (0.1-1.0); BLOOD UREA NITROGEN 16 MG/DL (7-18); BUN/CREATININE RATIO 24.6 (6.6-38.0); CALCIUM 8.3 MG/DL (8.5-10.1); CHLORIDE 104 MMOL/L (99-107); CREATININE 0.65 MG/DL (0.40-0.90); GLUCOSE 165 MG/DL (70-104); POTASSIUM 4.4 MMOL/L (3.5-5.1); PREALBUMIN 14.3 MG/DL (19-36); SODIUM 138 MMOL/L (135-145); TOTAL CARBON DIOXIDE 26.2 MMOL/L (24-32); TOTAL PROTEIN 6.2 G/DL (6.4-8.2); TRIGLYCERIDES 103 MG/DL (20-135); eGFR 87 ML/MIN
[2021-06-23 07:35] LABS: ANISOCYTOSIS 3+; PLATELET ESTIMATE NORMAL; TOTAL CELLS COUNTED 100
[2021-06-23] MEDS: citalopram 20mg tablet PO SCH (07:47)
[2021-06-23] MEDS: predniSONE 5mg tablet PO SCH (07:47)
[2021-06-23] MEDS: heparin, porcine 5000 units/ml vial SQ SCH ×2 (07:48→20:31)
[2021-06-23] MEDS: K and/or MAG REPLACEMENT MC SCH ×2 (08:00→18:14)
[2021-06-23] MEDS: fluconazole-Diflucan 100MG/NS 50 ML IV SCH (10:01)
[2021-06-23 11:00] VITALS: BP 119/56
[2021-06-23] MEDS: MVI, adult No.4 with vit. K 5 ML, ZINC/COPPER/MANGANESE/SELENIUM 0.5 ML, chromic chlori... IV SCH ×4 (11:39)
[2021-06-23] MEDS: normal saline 1000ml 1,000 ML IV SCH (16:49)
[2021-06-23 18:00] VITALS: BP 125/69
--- NOTE | 2021-06-23 18:46 | NUR ---
Patient in room [facility]. I have received report from KAYLA Marie and had the opportunity to ask questions and assume patient care.
--- NOTE | 2021-06-23 18:51 | NUR ---
Problems reprioritized. Patient report given, questions answered & plan of care reviewed with Laruie GARZA.
[2021-06-23] MEDS: MESSAGE TO NURSING IV SCH (20:00)
[2021-06-23] MEDS: fat emulsion 20% inj. 100 ML IV SCH (20:53)
[2021-06-23] MEDS: latanoprost 0.005% 2.5ml ophthalmic drops EACHEYE SCH (20:53)
[2021-06-24] VITALS: BP 107/45
[2021-06-24] MEDS: normal saline 1000ml 1,000 ML IV SCH ×3 (00:17→23:08)
[2021-06-24] MEDS: ceFOXitin inj 1,000 MG in normal saline 100ml IV soln 100 ML IV SCH ×4 (00:17→23:08)
[2021-06-24] MEDS: metoclopramide 5 mg/ml inj IV PRN ×2 (01:14→11:56)
[2021-06-24] MEDS: morphine 2 MG/ML inj. syringe IV PRN ×4 (01:23→23:23)
[2021-06-24] MEDS: MVI, adult No.4 with vit. K 5 ML, ZINC/COPPER/MANGANESE/SELENIUM 0.5 ML, chromic chlori... IV SCH ×8 (03:26→16:08)
[2021-06-24] MEDS: ondansetron/PF 4mg/2ml inj IV PRN ×2 (04:57→04:58)
[2021-06-24 07:00] VITALS: BP 110/56
--- NOTE | 2021-06-24 07:00 | NUR ---
Patient in room [facility]. I have received report from Laurie GARZA and had the opportunity to ask questions and assume patient care.
--- NOTE | 2021-06-24 07:05 | NUR ---
Problems reprioritized. Patient report given, questions answered & plan of care reviewed with KAYLA Gonzalez.
--- NOTE | 2021-06-24 07:12 | NUR ---
Patient suffering from nausea and vomiting. Let dayshi nurse KAYLA Gonzalez know in report that patient may need CT to determine cause of nausea and pain.
[2021-06-24] MEDS: K and/or MAG REPLACEMENT MC SCH ×2 (08:00→20:00)
[2021-06-24] MEDS: predniSONE 5mg tablet PO SCH (08:41)
[2021-06-24] MEDS: fluconazole-Diflucan 100MG/NS 50 ML IV SCH (08:41)
[2021-06-24] MEDS: citalopram 20mg tablet PO SCH (08:42)
[2021-06-24] MEDS: heparin, porcine 5000 units/ml vial SQ SCH ×2 (08:42→20:33)
[2021-06-24 10:17] LABS: ANION GAP 8 (8-16); BLOOD UREA NITROGEN 18 MG/DL (7-18); BUN/CREATININE RATIO 21.7 (6.6-38.0); CHLORIDE 105 MMOL/L (99-107); CREATININE 0.83 MG/DL (0.40-0.90); POTASSIUM 4.3 MMOL/L (3.5-5.1); SODIUM 138 MMOL/L (135-145); TOTAL CARBON DIOXIDE 25.5 MMOL/L (24-32)
[2021-06-24 10:18] LABS: ALANINE AMINOTRANSFERASE 11 U/L (12-78); ALBUMIN 2.1 G/DL (3.4-5.0); ALBUMIN/GLOBULIN RATIO 0.6 (1.1-1.5); ALKALINE PHOSPHATASE 108 IU/L (46-116); ASPARTATE AMINO TRANSFERASE 22 U/L (10-37); BILIRUBIN,TOTAL 0.5 MG/DL (0.1-1.0); CALCIUM 7.9 MG/DL (8.5-10.1); MAGNESIUM 1.9 MG/DL (1.5-2.4); TOTAL PROTEIN 5.7 G/DL (6.4-8.2); eGFR 66 ML/MIN
[2021-06-24 10:21] LABS: GLUCOSE 151 MG/DL (70-104)
[2021-06-24 12:00] VITALS: BP 150/57
[2021-06-24] MEDS: methylnaltrexone br 12mg/0.6ml inj***SubQ only SQ PRN (15:02)
--- NOTE | 2021-06-24 16:00 | NUR ---
phoned pharmacy, no Clinimix on floor. Adequate amount in PIV bag. They will bring up once ready. Will continue to monitor.
[2021-06-24] MEDS: magnesium hydroxide 30ml (MOM) UD suspension PO SCH (16:06)
--- NOTE | 2021-06-24 18:42 | NUR ---
Problems reprioritized. Patient report given, questions answered & plan of care reviewed with Laurie GARZA.
[2021-06-24 19:00] VITALS: BP 150/60
--- NOTE | 2021-06-24 19:17 | NUR ---
Patient in room [facility]. I have received report from KAYLA Gonzalez and had the opportunity to ask questions and assume patient care.
[2021-06-24] MEDS: MESSAGE TO NURSING IV SCH (20:00)
[2021-06-24] MEDS: fat emulsion 20% inj. 100 ML IV SCH (20:33)
[2021-06-24] MEDS: latanoprost 0.005% 2.5ml ophthalmic drops EACHEYE SCH (20:34)
[2021-06-25] VITALS: BP 146/62
--- NOTE | 2021-06-25 06:22 | NUR ---
Problems reprioritized. Patient report given, questions answered & plan of care reviewed with KAYLA Gonzalez.
--- NOTE | 2021-06-25 06:24 | NUR ---
Problems reprioritized. Patient report given, questions answered & plan of care reviewed with KAYLA Oliver.
[2021-06-25 07:00] VITALS: BP 142/54
--- NOTE | 2021-06-25 07:03 | NUR ---
Patient in room [facility]. I have received report from Laurie GARZA and had the opportunity to ask questions and assume patient care.
[2021-06-25 07:10] LABS: BASOPHILS % (AUTO) 0.3 % (0-1); EOSINOPHILS # (AUTO) 0.3 X10'3 (0-0.9); EOSINOPHILS % (AUTO) 2.7 % (0-6); HEMATOCRIT 28.3 % (35.0-45.0); HEMOGLOBIN 8.9 g/dl (12.0-16.0); LYMPHOCYTES # (AUTO) 1.8 X10'3 (1.1-4.8); LYMPHOCYTES % (AUTO) 18.5 % (21-51); MEAN CORPUSCULAR HEMOGLOBIN 26.3 PG (27.0-31.0); MEAN CORPUSCULAR HGB CONC 31.4 g/dL (33.0-36.5); MEAN CORPUSCULAR VOLUME 83.8 FL (78-98); MEAN PLATELET VOLUME 8.3 FL (7.4-10.4); MONOCYTES # (AUTO) 1.4 X10'3 (0-0.9); MONOCYTES % (AUTO) 14.7 % (2-12); NEUTROPHILS # (AUTO) 6.2 X10'3 (1.8-7.7); NEUTROPHILS % (AUTO) 63.8 % (42-75); PLATELET COUNT 302 X10'3 (140-440); RED BLOOD COUNT 3.38 X10'6 (4.20-5.60); RED CELL DISTRIBUTION WIDTH 21.1 % (11.5-14.5); WHITE BLOOD COUNT 9.7 X10'3 (4.5-11.0)
[2021-06-25 07:31] LABS: ALANINE AMINOTRANSFERASE 13 U/L (12-78); ALBUMIN 2.1 G/DL (3.4-5.0); ALBUMIN/GLOBULIN RATIO 0.6 (1.1-1.5); ALKALINE PHOSPHATASE 129 IU/L (46-116); ANION GAP 8 (8-16); ASPARTATE AMINO TRANSFERASE 21 U/L (10-37); BILIRUBIN,TOTAL 0.4 MG/DL (0.1-1.0); BLOOD UREA NITROGEN 13 MG/DL (7-18); BUN/CREATININE RATIO 24.1 (6.6-38.0); C-REACTIVE PROTEIN 2.43 MG/DL (0.0-0.5); CHLORIDE 108 MMOL/L (99-107); CREATININE 0.54 MG/DL (0.40-0.90); MAGNESIUM 2.2 MG/DL (1.5-2.4); PHOSPHORUS 2.9 MG/DL (2.3-4.5); POTASSIUM 4.1 MMOL/L (3.5-5.1); PREALBUMIN 16.2 MG/DL (19-36); SODIUM 143 MMOL/L (135-145); TOTAL CARBON DIOXIDE 27.3 MMOL/L (24-32); TOTAL PROTEIN 5.8 G/DL (6.4-8.2); TRIGLYCERIDES 138 MG/DL (20-135); eGFR > 90 ML/MIN
[2021-06-25 07:33] LABS: GLUCOSE 79 MG/DL (70-104)
[2021-06-25] MEDS: MVI, adult No.4 with vit. K 5 ML, ZINC/COPPER/MANGANESE/SELENIUM 0.5 ML, chromic chlori... IV SCH ×4 (07:42)
[2021-06-25] MEDS: K and/or MAG REPLACEMENT MC SCH ×2 (08:00→20:00)
[2021-06-25] MEDS: magnesium hydroxide 30ml (MOM) UD suspension PO SCH (08:00)
--- NOTE | 2021-06-25 08:57 | NUR ---
Reassessment: TPN continues to run at goal. Pt on Clear Liquid diet though refusing all meals. Pt noted to have small episodes of emesis 06/23-. Pt may benefit from Ensure Clear if to stay on clear liquid diet for prolonged time. Pt noted to be passing gas and having BM, LBM 06/24. Will continue to monitor PO trends. Recommendations: 1) Continuous 2:1 Clinimix-E 03/26 with goal rate of 63 mL/hr with additional 100 mL 20% intralipids at 8.33 mL/hr for 12 hours. In total to provide 1612 mL total volume/day, 1530 kcal, 75.6 g AA, 302.4 g dextrose (4.15 mg/kg/min dext load), and 20 g lipids 2) Prealbumin and TG q Tuesday/ 3) Daily weights 4) Ensure Clear TID to provide 720kcals and 24g protein if consumed 100% 5) Advance to low residue diet as medically indicated 6) Bowel care per rx Addendum: 06/25/21 at [address] Amended: Links added.
[2021-06-25] MEDS: predniSONE 5mg tablet PO SCH (09:03)
[2021-06-25] MEDS: citalopram 20mg tablet PO SCH (09:03)
[2021-06-25] MEDS: heparin, porcine 5000 units/ml vial SQ SCH ×2 (09:03→23:08)
--- NOTE | 2021-06-25 09:25 | NUR ---
Dressing to abdomen changed per written orders. Pt tolerated well.
[2021-06-25 11:00] VITALS: BP 130/52
[2021-06-25] MEDS ORDERED: acetaminophen 325mg tablet PO PRN (13:10)
--- NOTE | 2021-06-25 17:15 | NUR ---
Dr Jc at pt bedside at 1615. Report given, orders received: Low Residue diet, outside food ok, red dye foods ok, discourage narcotic use for pain, Tylenol orderd. Once PO intake increases hospitalist to wean then d/c TPN. Planning to send home unless qualifies for rehab. Spoke with Dr Kulkarni notified of Dr Jc instructions. Will continue to monitor.
--- NOTE | 2021-06-25 18:40 | NUR ---
Problems reprioritized. Patient report given, questions answered & plan of care reviewed with Elieser GARZA.
--- NOTE | 2021-06-25 19:05 | NUR ---
Patient in room [facility]. I have received report from Lisa GARZA and had the opportunity to ask questions and assume patient care.
[2021-06-25 19:11] VITALS: BP 134/65
[2021-06-25] MEDS: MESSAGE TO NURSING IV SCH (20:00)
[2021-06-25] MEDS: fat emulsion 20% inj. 100 ML IV SCH (23:07)
[2021-06-25] MEDS: latanoprost 0.005% 2.5ml ophthalmic drops EACHEYE SCH (23:08)
[2021-06-25] MEDS: metoclopramide 5 mg/ml inj IV PRN (23:08)
[2021-06-25 23:55] VITALS: BP 138/72
[2021-06-26] MEDS: MVI, adult No.4 with vit. K 5 ML, ZINC/COPPER/MANGANESE/SELENIUM 0.5 ML, chromic chlori... IV SCH ×8 (03:08→18:23)
[2021-06-26] MEDS: metoclopramide 5 mg/ml inj IV PRN (05:33)
[2021-06-26 06:51] LABS: ALANINE AMINOTRANSFERASE 14 U/L (12-78); ALBUMIN 2.2 G/DL (3.4-5.0); ALBUMIN/GLOBULIN RATIO 0.6 (1.1-1.5); ALKALINE PHOSPHATASE 117 IU/L (46-116); ANION GAP 6 (8-16); ASPARTATE AMINO TRANSFERASE 23 U/L (10-37); BILIRUBIN,TOTAL 0.4 MG/DL (0.1-1.0); BLOOD UREA NITROGEN 16 MG/DL (7-18); BUN/CREATININE RATIO 26.7 (6.6-38.0); CALCIUM 8.2 MG/DL (8.5-10.1); CHLORIDE 106 MMOL/L (99-107); MAGNESIUM 2.1 MG/DL (1.5-2.4); PHOSPHORUS 3.4 MG/DL (2.3-4.5); POTASSIUM 3.8 MMOL/L (3.5-5.1); SODIUM 141 MMOL/L (135-145); TOTAL CARBON DIOXIDE 29.3 MMOL/L (24-32); TOTAL PROTEIN 6.2 G/DL (6.4-8.2); eGFR > 90 ML/MIN
[2021-06-26 06:53] LABS: GLUCOSE 117 MG/DL (70-104)
--- NOTE | 2021-06-26 07:13 | NUR ---
Problems reprioritized. Patient report given, questions answered & plan of care reviewed with Viridiana GARZA.
[2021-06-26 08:00] VITALS: BP 144/53
[2021-06-26] MEDS: K and/or MAG REPLACEMENT MC SCH ×2 (08:00→20:00)
[2021-06-26] MEDS: magnesium hydroxide 30ml (MOM) UD suspension PO SCH (08:23)
[2021-06-26] MEDS: citalopram 20mg tablet PO SCH (08:24)
[2021-06-26] MEDS: predniSONE 5mg tablet PO SCH (08:24)
[2021-06-26] MEDS: heparin, porcine 5000 units/ml vial SQ SCH ×2 (08:25→22:26)
[2021-06-26] MEDS: pantoprazole 40 MG vial IV SCH (11:50)
[2021-06-26 12:00] VITALS: BP 138/60
--- NOTE | 2021-06-26 15:03 | NUR ---
Nutrition Consult "eval pt's PO intake and need for TPN": Pt PO 0% vs refusing majority of meals w/ 25% first low-fiber meal dinner last night. LBM x2 06/25 first significant this admit w/ nausea and abdominal pain noted per EMR. Pt current PO intake not sufficient to warrant TPN wean or adjustments at this time. RD d/w RN nutrition recs. IF PO acceptance improves may benefit from liquid ONS to assist meeting PO nutrition needs. Recommendations: 1) Continuous TPN using 2:1 Clinimix-E 03/26 with goal rate of 63 mL/hr with additional 100 mL 20% intralipids at 8.33 mL/hr for 12 hours. In total to provide 1612 mL total volume/day, 1530 kcal, 75.6 g AA, 302.4 g dextrose (4.15 mg/kg/min dext load), and 20 g lipids 2) PALB/TG q Tuesday/; daily wts 4) Continue low-residue diet per MD; encourage PO 5) IF PO improves; consider Ensure Enlive TIDWM 6) Wean PN as medically indicated once PO intake improves post-op 7) Routine bowel care Addendum: 06/26/21 at [address] Amended: Links added.
--- NOTE | 2021-06-26 15:38 | NUR ---
WC change done
--- NOTE | 2021-06-26 18:40 | NUR ---
Patient in room [facility]. I have received report from Viridiana GARZA and had the opportunity to ask questions and assume patient care.
[2021-06-26 18:41] VITALS: BP 135/55
--- NOTE | 2021-06-26 19:29 | NUR ---
Patient given back to Elieser GARZA. All questions answered. No current needs from patient. Pt alert, oriented and appears stable at this time.
[2021-06-26] MEDS: MESSAGE TO NURSING IV SCH (20:00)
[2021-06-26] MEDS: fat emulsion 20% inj. 100 ML IV SCH (22:24)
[2021-06-26] MEDS: latanoprost 0.005% 2.5ml ophthalmic drops EACHEYE SCH (22:26)
[2021-06-26 23:30] VITALS: BP 137/54
[2021-06-27 07:00] VITALS: BP 134/50
--- NOTE | 2021-06-27 07:04 | NUR ---
Problems reprioritized. Patient report given, questions answered & plan of care reviewed with Hugo GARZA.
[2021-06-27] MEDS: magnesium hydroxide 30ml (MOM) UD suspension PO SCH (07:28)
[2021-06-27 07:30] LABS: ALANINE AMINOTRANSFERASE 19 U/L (12-78); ALBUMIN 2.5 G/DL (3.4-5.0); ALBUMIN/GLOBULIN RATIO 0.6 (1.1-1.5); ALKALINE PHOSPHATASE 133 IU/L (46-116); ANION GAP 9 (8-16); ASPARTATE AMINO TRANSFERASE 30 U/L (10-37); BILIRUBIN,TOTAL 0.3 MG/DL (0.1-1.0); BLOOD UREA NITROGEN 19 MG/DL (7-18); BUN/CREATININE RATIO 30.2 (6.6-38.0); CHLORIDE 105 MMOL/L (99-107); CREATININE 0.63 MG/DL (0.40-0.90); GLUCOSE 85 MG/DL (70-104); MAGNESIUM 2.4 MG/DL (1.5-2.4); PHOSPHORUS 3.8 MG/DL (2.3-4.5); POTASSIUM 4.4 MMOL/L (3.5-5.1); SODIUM 142 MMOL/L (135-145); TOTAL PROTEIN 6.6 G/DL (6.4-8.2); eGFR > 90 ML/MIN
[2021-06-27] MEDS: pantoprazole 40 MG vial IV SCH (07:30)
[2021-06-27] MEDS: heparin, porcine 5000 units/ml vial SQ SCH ×2 (07:30→22:30)
[2021-06-27] MEDS: citalopram 20mg tablet PO SCH (07:30)
[2021-06-27] MEDS: predniSONE 5mg tablet PO SCH (07:31)
[2021-06-27] MEDS: K and/or MAG REPLACEMENT MC SCH ×2 (08:00→20:00)
[2021-06-27] MEDS ORDERED: MVI, adult No.4 with vit. K 5 ML, ZINC/COPPER/MANGANESE/SELENIUM 0.5 ML, chromic chlori... IV SCH ×4 (10:05)
[2021-06-27 11:00] VITALS: BP 125/57
[2021-06-27 18:16] VITALS: BP 137/65
--- NOTE | 2021-06-27 18:38 | NUR ---
Patient in room [facility]. I have received report from Hugo GARZA and had the opportunity to ask questions and assume patient care.
[2021-06-27] MEDS ORDERED: fat emulsion IV bag 100 ML IV SCH (20:00)
[2021-06-27] MEDS: normal saline 1000ml 1,000 ML IV SCH (22:28)
[2021-06-27] MEDS: latanoprost 0.005% 2.5ml ophthalmic drops EACHEYE SCH (22:30)
[2021-06-27 23:40] VITALS: BP 137/62
--- NOTE | 2021-06-28 06:27 | NUR ---
Problems reprioritized. Patient report given, questions answered & plan of care reviewed with Hugo GARZA.
[2021-06-28 07:08] LABS: ALANINE AMINOTRANSFERASE 31 U/L (12-78); ALBUMIN 2.5 G/DL (3.4-5.0); ALBUMIN/GLOBULIN RATIO 0.6 (1.1-1.5); ALKALINE PHOSPHATASE 163 IU/L (46-116); ANION GAP 9 (8-16); ASPARTATE AMINO TRANSFERASE 43 U/L (10-37); BILIRUBIN,TOTAL 0.6 MG/DL (0.1-1.0); BLOOD UREA NITROGEN 20 MG/DL (7-18); BUN/CREATININE RATIO 28.2 (6.6-38.0); CHLORIDE 104 MMOL/L (99-107); CREATININE 0.71 MG/DL (0.40-0.90); MAGNESIUM 2.3 MG/DL (1.5-2.4); PHOSPHORUS 3.9 MG/DL (2.3-4.5); POTASSIUM 4.1 MMOL/L (3.5-5.1); SODIUM 140 MMOL/L (135-145); TOTAL CARBON DIOXIDE 26.7 MMOL/L (24-32); TOTAL PROTEIN 6.8 G/DL (6.4-8.2); eGFR 79 ML/MIN
[2021-06-28 07:10] LABS: GLUCOSE 79 MG/DL (70-104)
[2021-06-28 07:47] VITALS: BP 125/60
[2021-06-28] MEDS ORDERED: MESSAGE TO NURSING IV SCH (08:00)
[2021-06-28] MEDS: magnesium hydroxide 30ml (MOM) UD suspension PO SCH ×2 (08:00→08:05)
[2021-06-28] MEDS: ondansetron/PF 4mg/2ml inj IV PRN (08:05)
[2021-06-28] MEDS: pantoprazole 40 MG vial IV SCH (08:05)
[2021-06-28] MEDS: heparin, porcine 5000 units/ml vial SQ SCH (08:06)
[2021-06-28] MEDS: predniSONE 5mg tablet PO SCH (08:06)
[2021-06-28] MEDS: K and/or MAG REPLACEMENT MC SCH (08:06)
[2021-06-28] MEDS: citalopram 20mg tablet PO SCH (08:06)
[2021-06-28] MEDS ORDERED: PANT40TA54 PO (11:18)
[2021-06-28 11:42] VITALS: BP 113/49
== END 2021-06-28 14:30 | disposition home health service (06) | DRG 329 ==
LOC: PAS IN 05:47 → UNDOADMIN 05:47 → PAS IN 12:14 → SUR 3N 13:50
PROVIDERS: ADMIT Colon & Rectal Surgery; ATTEND Colon & Rectal Surgery
PROC: 0DBN4ZZ Excision of Sigmoid Colon, Percutaneous Endoscopic Approach (ICD-10-PCS; principal; 2021-06-15 07:46)
PROC: 0T788DZ Dilation of Bilateral Ureters with Intraluminal Device, Via Natural or Artificial Opening Endoscopic (ICD-10-PCS; 2021-06-15 07:46)
PROC: 0D9670Z Drainage of Stomach with Drainage Device, Via Natural or Artificial Opening (ICD-10-PCS; 2021-06-17)
PROC: 02HV33Z Insertion of Infusion Device into Superior Vena Cava, Percutaneous Approach (ICD-10-PCS; 2021-06-19)
PROC: B548ZZA Ultrasonography of Superior Vena Cava, Guidance (ICD-10-PCS; 2021-06-19)
DX: K57.92 Diverticulitis of intestine, part unspecified, without perforation or abscess without bleeding (principal); E43 Unspecified severe protein-calorie malnutrition; N32.1 Vesicointestinal fistula; K56.7 Ileus, unspecified; D62 Acute posthemorrhagic anemia; Z96.641 Presence of right artificial hip joint; F32.9 Major depressive disorder, single episode, unspecified; M06.9 Rheumatoid arthritis, unspecified; E87.6 Hypokalemia; M81.0 Age-related osteoporosis without current pathological fracture; Z66 Do not resuscitate; F41.9 Anxiety disorder, unspecified; Z80.1 Family history of malignant neoplasm of trachea, bronchus and lung; Z87.440 Personal history of urinary (tract) infections; Z87.891 Personal history of nicotine dependence; Z90.710 Acquired absence of both cervix and uterus; Z79.899 Other long term (current) drug therapy; Z98.49 Cataract extraction status, unspecified eye; Z68.20 Body mass index [BMI] 20.0-20.9, adult
CPT/HCPCS: 36415; 36573; 76000; 80048; 80053; 82570; 82948; 83735; 84100; 84134; 84478; 84560; 85007; 85008; 85025; 86140; 86885; 86900; 86901; 87081; 88307; 97161; 97530; A4215; A4338; A4355; A4618; A6402; A6449; A7000; C1758; C1769; C9113; C9399; G0378; J0131; J0694; J1450; J1644; J1720; J2001; J2212; J2250; J2270; J2405; J2704; J2765; J3010; J3480; J3490; J7030; J7050; J7120; J7512; P9047

== ENCOUNTER 2021-07-04 11:55 | Inpatient (IN) | payer MEDICARE, BC ==
[~2021-07-04] VITALS: Ht 157.5 cm; Wt 48.0 kg
[~2021-07-04 11:55] MED LIST changes: -CIPR-259 PO; -INDOCYANINE GREEN 25 MG/10 ML VIAL IV ONE; -MALTODEXTRIN/FRUCTOSE 0.68 KCAL/ML LIQUID 296ML BOTTLE PO ONE; -METR-159 PO; +PANT40TA54 PO; -ceFOXitin 2GM-NS 100mL ADDvant 100 ML IV ONE; -famotidine 20mg tablet PO ONE; -heparin, porcine 5000 units/ml vial SQ ONE; -metroNIDAZOLE-Flagyl 500mg/NS 100ML IVPB IV ONE; -ringers solution, lacted 1,000 ML IV SCH
[2021-07-04 14:58] LABS: BASOPHILS # (AUTO) 0.2 X10'3 (0-0.2); BASOPHILS % (AUTO) 1.3 % (0-1); EOSINOPHILS % (AUTO) 0.2 % (0-6); HEMATOCRIT 35.9 % (35.0-45.0); HEMOGLOBIN 11.3 g/dl (12.0-16.0); LYMPHOCYTES # (AUTO) 1.5 X10'3 (1.1-4.8); MEAN CORPUSCULAR HEMOGLOBIN 25.9 PG (27.0-31.0); MEAN CORPUSCULAR HGB CONC 31.5 g/dL (33.0-36.5); MEAN CORPUSCULAR VOLUME 82.3 FL (78-98); MONOCYTES # (AUTO) 0.8 X10'3 (0-0.9); MONOCYTES % (AUTO) 6.3 % (2-12); NEUTROPHILS # (AUTO) 10.2 X10'3 (1.8-7.7); NEUTROPHILS % (AUTO) 80.2 % (42-75); PLATELET COUNT 751 X10'3 (140-440); RED BLOOD COUNT 4.37 X10'6 (4.20-5.60); RED CELL DISTRIBUTION WIDTH 20.2 % (11.5-14.5); WHITE BLOOD COUNT 12.8 X10'3 (4.5-11.0)
[2021-07-04 15:08] LABS: ALANINE AMINOTRANSFERASE 48 U/L (12-78); ALBUMIN 3.1 G/DL (3.4-5.0); ALBUMIN/GLOBULIN RATIO 0.6 (1.1-1.5); ALKALINE PHOSPHATASE 151 IU/L (46-116); ANION GAP 12 (8-16); ASPARTATE AMINO TRANSFERASE 36 U/L (10-37); BILIRUBIN,TOTAL 0.5 MG/DL (0.1-1.0); BLOOD UREA NITROGEN 23 MG/DL (7-18); BUN/CREATININE RATIO 23.7 (6.6-38.0); CALCIUM 9.7 MG/DL (8.5-10.1); CHLORIDE 98 MMOL/L (99-107); CREATININE 0.97 MG/DL (0.40-0.90); LIPASE 244 U/L (73-393); POTASSIUM 4.2 MMOL/L (3.5-5.1); SODIUM 137 MMOL/L (135-145); TOTAL CARBON DIOXIDE 27.2 MMOL/L (24-32); TOTAL PROTEIN 8.3 G/DL (6.4-8.2); eGFR 55 ML/MIN
[2021-07-04 15:10] LABS: GLUCOSE 148 MG/DL (70-104)
[2021-07-04 15:15] LABS: ANISOCYTOSIS 3+; LARGE PLATELETS FEW; PLATELET ESTIMATE INCREASED
[2021-07-04] MEDS ORDERED: iohexol 300mg/ml 100ml inj. ONE (23:10)
[2021-07-05 00:13] LABS: CLARITY,URINE CLEAR (Clear); COLOR,URINE YELLOW (Yellow); GLUCOSE, URINE NEGATIVE (Neg); KETONES,URINE NEGATIVE (Neg); LEUKOCYTE ESTERASE ,URINE TRACE (Neg); NITRITES, URINE POSITIVE (Neg); OCCULT BLOOD,URINE SMALL (Neg); PROTEIN,URINE NEGATIVE (Neg); UROBILINOGEN,URINE 0.2 E.U/dL (0.2-1.0)
[2021-07-05 00:14] LABS: UA COLLECTION TYPE CLN CATCH MIDSTREAM
[2021-07-05 00:15] LABS: BACTERIA,URINE 1+ /HPF (Neg); RBC,URINE 0-2 /HPF (0-2); SQUAMOUS EPITHELIAL CELL,UR FEW /LPF (FEW)
[2021-07-05] MEDS ORDERED: CefTRIAXone 2gm/D5W 50ml BAG 50 ML IV ONE (04:00)
[2021-07-05] MEDS ORDERED: magnesium Cl slow-release 64mg tablet PO PRN (04:50)
[2021-07-05] MEDS ORDERED: mag hydrox/Alum hydrox/simeth 30ml oral suspension PO PRN (04:50)
[2021-07-05] MEDS ORDERED: acetaminophen 325mg tablet PO PRN ×2 (04:50)
[2021-07-05] MEDS ORDERED: ondansetron/PF 4mg/2ml inj IV PRN (04:50)
[2021-07-05] MEDS ORDERED: magnesium 2GM in 50ml NS 50 ML IV PRN (04:50)
[2021-07-05] MEDS ORDERED: potassium Cl 40MEQ/1/2NS 520ml 520 ML IV PRN ×2 (04:50)
[2021-07-05] MEDS ORDERED: HYDROcodone/acetaminophen 5mg/325mg tablet PO PRN (04:50)
[2021-07-05] MEDS ORDERED: morphine 2 MG/ML inj. syringe IV PRN (04:50)
[2021-07-05] MEDS ORDERED: magnesium 4gm in 100ml NS 100 ML IV PRN (04:50)
[2021-07-05] MEDS: normal saline 1000ml 1,000 ML IV SCH ×2 (04:50→22:29)
[2021-07-05] MEDS ORDERED: potassium Cl 20 mEq SR tablet PO PRN ×2 (04:50)
[2021-07-05] MEDS: K and/or MAG REPLACEMENT MC SCH ×2 (08:00→20:00)
[2021-07-05] MEDS: heparin, porcine 5000 units/ml vial SQ SCH ×2 (08:42→22:42)
[2021-07-05] MEDS: ciprofloxacin lact 400MG/200ML 200 ML IV SCH ×2 (08:42→22:29)
[2021-07-05] MEDS: sennosides/docusate sodium tablet PO SCH ×2 (08:42→22:40)
[2021-07-05] MEDS: predniSONE 5mg tablet PO SCH (11:36)
[2021-07-05] MEDS ORDERED: temazepam 15mg capsule PO PRN (21:00)
[2021-07-05] MEDS: latanoprost 0.005% 2.5ml ophthalmic drops EACHEYE SCH (22:30)
[2021-07-05] MEDS: lactobacillus rhamnosus 10,000 MMU CELLS/CAPSULE PO SCH (22:30)
--- NOTE | 2021-07-06 | NUR ---
pt sleeping, rr non-labored, in no distress.
[2021-07-06 04:06] LABS: BASOPHILS # (AUTO) 0.1 X10'3 (0-0.2); BASOPHILS % (AUTO) 1.2 % (0-1); EOSINOPHILS # (AUTO) 0.1 X10'3 (0-0.9); EOSINOPHILS % (AUTO) 1.2 % (0-6); HEMATOCRIT 30.4 % (35.0-45.0); HEMOGLOBIN 9.6 g/dl (12.0-16.0); LYMPHOCYTES % (AUTO) 23.6 % (21-51); MEAN CORPUSCULAR HEMOGLOBIN 26.1 PG (27.0-31.0); MEAN CORPUSCULAR HGB CONC 31.5 g/dL (33.0-36.5); MEAN CORPUSCULAR VOLUME 82.8 FL (78-98); MEAN PLATELET VOLUME 7.7 FL (7.4-10.4); MONOCYTES # (AUTO) 1.1 X10'3 (0-0.9); MONOCYTES % (AUTO) 13.6 % (2-12); NEUTROPHILS % (AUTO) 60.4 % (42-75); PLATELET COUNT 598 X10'3 (140-440); RED BLOOD COUNT 3.67 X10'6 (4.20-5.60); RED CELL DISTRIBUTION WIDTH 20.2 % (11.5-14.5); WHITE BLOOD COUNT 8.4 X10'3 (4.5-11.0)
[2021-07-06 04:09] LABS: ALBUMIN 2.5 G/DL (3.4-5.0); ANION GAP 6 (8-16); BLOOD UREA NITROGEN 16 MG/DL (7-18); BUN/CREATININE RATIO 22.2 (6.6-38.0); CALCIUM 8.5 MG/DL (8.5-10.1); CHLORIDE 109 MMOL/L (99-107); CREATININE 0.72 MG/DL (0.40-0.90); POTASSIUM 3.9 MMOL/L (3.5-5.1); SODIUM 142 MMOL/L (135-145); TOTAL CARBON DIOXIDE 27.2 MMOL/L (24-32); eGFR 78 ML/MIN
[2021-07-06 04:21] LABS: GLUCOSE 76 MG/DL (70-104)
[2021-07-06 05:11] LABS: PLATELET ESTIMATE INCREASED
[2021-07-06 05:12] LABS: ANISOCYTOSIS 3+; LARGE PLATELETS FEW
[2021-07-06 05:13] LABS: HYPOCHROMASIA 1+
--- NOTE | 2021-07-06 06:05 | NUR ---
pt sleeping, rr even, non-labored
[2021-07-06] MEDS: K and/or MAG REPLACEMENT MC SCH ×2 (08:00→20:00)
[2021-07-06] MEDS: ciprofloxacin lact 400MG/200ML 200 ML IV SCH (09:08)
[2021-07-06] MEDS: lactobacillus rhamnosus 10,000 MMU CELLS/CAPSULE PO SCH ×2 (09:10→20:13)
[2021-07-06] MEDS: citalopram 20mg tablet PO SCH (09:10)
[2021-07-06] MEDS: sennosides/docusate sodium tablet PO SCH ×2 (09:10→20:13)
[2021-07-06] MEDS: predniSONE 5mg tablet PO SCH (09:11)
[2021-07-06] MEDS: heparin, porcine 5000 units/ml vial SQ SCH ×2 (09:11→20:12)
[2021-07-06] MEDS: normal saline 1000ml 1,000 ML IV SCH ×2 (09:11→20:12)
[2021-07-06 11:25] VITALS: BP 106/68
--- NOTE | 2021-07-06 11:30 | NUR ---
DR ZUÑIGA AT [facility]AL[facility] PT. Addendum: 07/06/21 at 1154 by Cornelia Griffin RN RN Amended: Links added.
--- NOTE | 2021-07-06 12:41 | NUR ---
REPORT GIVEN TO MISTY GARZA. MISTY HAS NO FURTHER QUESTIONS AT THIS TIME AND HAS ASSUMED CARE OF PT. PT TAKEN OT ROOM [facility] IN [facility]OS[facility]ITAL BED WITH 1 BAG OF PT BELONGINGS. Addendum: 07/06/21 at 1244 by Cornelia Griffin RN, RN Amended: Links added.
--- NOTE | 2021-07-06 12:45 | NUR ---
Patient in room [facility]. I have received report from tawana GARZA and had the opportunity to ask questions and assume patient care.
--- NOTE | 2021-07-06 13:00 | NUR ---
patient settled in room up to BR x1 with . Ambulated 300ft with PT. No c/o pain. will continue to monitor.
[2021-07-06 13:06] VITALS: BP 116/44
[2021-07-06] MEDS ORDERED: CefTRIAXone/D5W-Rocephin 1gm 50 ML IV SCH (14:32)
[2021-07-06 19:00] VITALS: BP 116/58
--- NOTE | 2021-07-06 19:09 | NUR ---
Problems reprioritized. Patient report given, questions answered & plan of care reviewed with Laurie GARZA.
[2021-07-06] MEDS: latanoprost 0.005% 2.5ml ophthalmic drops EACHEYE SCH (20:15)
[2021-07-07] VITALS: BP 122/48
[2021-07-07] MEDS: normal saline 1000ml 1,000 ML IV SCH (01:56)
--- NOTE | 2021-07-07 06:05 | NUR ---
PAGER ID: [phone] MESSAGE: Patient [id number] 2nd page: Patient has hives around neck can we please get something for him please. Thank you Laurie Granados [phone] Addendum: 07/07/21 at 0707 by Laurie Meza RN This note was added to the wrong patient. This was for the patient in 356 A not 355 [address].
[2021-07-07 06:49] LABS: BASOPHILS # (AUTO) 0.2 X10'3 (0-0.2); BASOPHILS % (AUTO) 1.6 % (0-1); EOSINOPHILS # (AUTO) 0.2 X10'3 (0-0.9); EOSINOPHILS % (AUTO) 1.7 % (0-6); HEMOGLOBIN 8.9 g/dl (12.0-16.0); LYMPHOCYTES # (AUTO) 2.6 X10'3 (1.1-4.8); LYMPHOCYTES % (AUTO) 26.3 % (21-51); MEAN CORPUSCULAR HEMOGLOBIN 25.7 PG (27.0-31.0); MEAN CORPUSCULAR HGB CONC 30.9 g/dL (33.0-36.5); MEAN CORPUSCULAR VOLUME 83.4 FL (78-98); MEAN PLATELET VOLUME 7.4 FL (7.4-10.4); MONOCYTES # (AUTO) 1.2 X10'3 (0-0.9); MONOCYTES % (AUTO) 12.4 % (2-12); NEUTROPHILS # (AUTO) 5.8 X10'3 (1.8-7.7); PLATELET COUNT 559 X10'3 (140-440); RED BLOOD COUNT 3.48 X10'6 (4.20-5.60); RED CELL DISTRIBUTION WIDTH 19.9 % (11.5-14.5)
[2021-07-07 06:57] LABS: ALBUMIN 2.4 G/DL (3.4-5.0); ANION GAP 7 (8-16); BLOOD UREA NITROGEN 12 MG/DL (7-18); BUN/CREATININE RATIO 17.9 (6.6-38.0); CALCIUM 8.4 MG/DL (8.5-10.1); CHLORIDE 111 MMOL/L (99-107); CREATININE 0.67 MG/DL (0.40-0.90); POTASSIUM 3.7 MMOL/L (3.5-5.1); SODIUM 144 MMOL/L (135-145); TOTAL CARBON DIOXIDE 25.6 MMOL/L (24-32); eGFR 84 ML/MIN
[2021-07-07 06:58] LABS: GLUCOSE 76 MG/DL (70-104)
[2021-07-07 07:00] VITALS: BP 135/49
--- NOTE | 2021-07-07 07:08 | NUR ---
Problems reprioritized. Patient report given, questions answered & plan of care reviewed with KAYLA Marie.
[2021-07-07 07:15] LABS: % IRON SATURATION 8 % (11-46); IRON 16 UG/DL (49-151); TOTAL IRON BINDING CAPACITY 209 UG/DL (259-388)
[2021-07-07] MEDS: K and/or MAG REPLACEMENT MC SCH (08:00)
[2021-07-07] MEDS: sennosides/docusate sodium tablet PO SCH (08:19)
[2021-07-07] MEDS: citalopram 20mg tablet PO SCH (08:19)
[2021-07-07] MEDS: lactobacillus rhamnosus 10,000 MMU CELLS/CAPSULE PO SCH (08:19)
[2021-07-07] MEDS: predniSONE 5mg tablet PO SCH (08:19)
[2021-07-07] MEDS: heparin, porcine 5000 units/ml vial SQ SCH (08:20)
[2021-07-07] MEDS ORDERED: iron sucrose complex injection 200 MG in normal saline 100ml IV soln 100 ML IV SCH (09:15)
--- NOTE | 2021-07-07 10:20 | NUR ---
PAGER ID: [phone] MESSAGE: Cynthia-Surg [id number] Re: [id number] [place] patient has no IV and I saw you ordered IV Iron can she get PO?
[2021-07-07] MEDS ORDERED: ascorbic acid 500mg tablet PO ONE (10:25)
[2021-07-07] MEDS ORDERED: ferrous sulfate 325mg tablet PO ONE (10:25)
[2021-07-07] MEDS ORDERED: SULF1TAB45 PO (10:26)
--- NOTE | 2021-07-07 11:08 | NUR ---
Patient in room [facility]. I have received report from KAYLA URIOSTEGUI and had the opportunity to ask questions and assume patient care.
--- NOTE | 2021-07-07 11:23 | NUR ---
Problems reprioritized. Patient report given, questions answered & plan of care reviewed with Brittany GARZA.
--- NOTE | 2021-07-07 13:16 | NUR ---
Patient alert and oriented with no complaints. Daughter was at bedside. Discharge instructions and new prescriptions discussed with patient. All questions and concerns answered. Patient dc'd home with all personal belongings escorted out in wheelchair by mmd unit teacher. Daughter transported home.
== END 2021-07-07 13:05 | disposition home health service (06) | DRG 689 ==
LOC: ER 11:55 → ED HOLD 07-05 04:54 → OBSVTOIN 07-05 16:17 → SUR 3N 07-06 12:50
PROVIDERS: ADMIT Internal Medicine; ATTEND Family Medicine
PROC: BW211ZZ Computerized Tomography (CT Scan) of Abdomen and Pelvis using Low Osmolar Contrast (ICD-10-PCS; principal; 2021-07-04)
DX: N39.0 Urinary tract infection, site not specified (principal); N17.0 Acute kidney failure with tubular necrosis; Z16.23 Resistance to quinolones and fluoroquinolones; E86.0 Dehydration; D50.9 Iron deficiency anemia, unspecified; K59.00 Constipation, unspecified; F41.8 Other specified anxiety disorders; B96.20 Unspecified Escherichia coli [E. coli] as the cause of diseases classified elsewhere; M06.9 Rheumatoid arthritis, unspecified; Z66 Do not resuscitate; R73.9 Hyperglycemia, unspecified; Z79.899 Other long term (current) drug therapy; N28.9 Disorder of kidney and ureter, unspecified
CPT/HCPCS: 36415; 74177; 80048; 80053; 81001; 81003; 83540; 83550; 83605; 83690; 83735; 85008; 85025; 87040; 87077; 87081; 87088; 87186; 97161; 97530; 99285; G0378; J0696; J0744; J1644; J7030; J7512; Q9967

== ENCOUNTER 2022-03-22 08:25 | Day surgery (SDC) | payer MEDICARE, BC ==
[2022-03-22] VITALS (10 sets, daily range): BP systolic 120–145; BP diastolic 47–58
[~2022-03-22] VITALS: Ht 157.5 cm; Wt 49.9 kg
[~2022-03-22 08:25] MED LIST changes: -PANT40TA54 PO; +SULF1TAB45 PO
[2022-03-22] MEDS ORDERED: Probiotic (09:05)
[2022-03-22 09:21] LABS: BASOPHILS # (AUTO) 0.1 X10'3 (0-0.2); EOSINOPHILS % (AUTO) 0.5 % (0-6); HEMATOCRIT 35.1 % (35.0-45.0); HEMOGLOBIN 11.5 g/dl (12.0-16.0); LYMPHOCYTES # (AUTO) 1.7 X10'3 (1.1-4.8); LYMPHOCYTES % (AUTO) 23.4 % (21-51); MEAN CORPUSCULAR HEMOGLOBIN 30.2 PG (27.0-31.0); MEAN CORPUSCULAR HGB CONC 32.9 g/dL (33.0-36.5); MEAN CORPUSCULAR VOLUME 91.8 FL (78-98); MEAN PLATELET VOLUME 6.8 FL (7.4-10.4); MONOCYTES # (AUTO) 0.6 X10'3 (0-0.9); NEUTROPHILS # (AUTO) 4.7 X10'3 (1.8-7.7); NEUTROPHILS % (AUTO) 66.1 % (42-75); PLATELET COUNT 418 X10'3 (140-440); RED BLOOD COUNT 3.82 X10'6 (4.20-5.60); RED CELL DISTRIBUTION WIDTH 19.4 % (11.5-14.5); WHITE BLOOD COUNT 7.1 X10'3 (4.5-11.0)
[2022-03-22 09:31] LABS: ANION GAP 9 (8-16); BLOOD UREA NITROGEN 17 MG/DL (7-18); BUN/CREATININE RATIO 23.3 (6.6-38.0); CALCIUM 9.3 MG/DL (8.5-10.1); CHLORIDE 106 MMOL/L (99-107); CREATININE 0.73 MG/DL (0.40-0.90); POTASSIUM 4.1 MMOL/L (3.5-5.1); SODIUM 141 MMOL/L (135-145); eGFR 76 ML/MIN
[2022-03-22 09:35] LABS: GLUCOSE 78 MG/DL (70-104)
[2022-03-22] MEDS ORDERED: diphenhydrAMINE 25mg capsule PO PRN (09:45)
[2022-03-22] MEDS ORDERED: sodium bicarbonate (8.4%) inj. 150 ML in dextrose 5%-water 1,000 ML IV ONE (09:45)
[2022-03-22] MEDS ORDERED: normal saline 1,000 ML IV SCH (09:45)
[2022-03-22 10:04] LABS: ANISOCYTOSIS 2+; PLATELET ESTIMATE NORMAL
[2022-03-22] MEDS ORDERED: nitroGLYCERIN-Tridil 50MG/D5W 250 ML IV ONE (10:19)
[2022-03-22] MEDS ORDERED: LIDOCAINE 1% w/preservative (10 MG/ML) inj. 10mL VIAL ONE (10:19)
[2022-03-22] MEDS ORDERED: fentaNYL/PF 50MCG/1 ML 2ML syringe ONE (10:19)
[2022-03-22] MEDS ORDERED: midazolam 1 mg/ML 2ml injection ONE (10:19)
[2022-03-22] MEDS ORDERED: verapamil 2.5 mg/ml inj IV ONE (10:19)
[2022-03-22] MEDS ORDERED: iohexol 350 MG/1 ML 200ml bottle ONE (10:20)
[2022-03-22] MEDS ORDERED: heparin 1,000unit/ml 10ml vial 10 ML ONE (10:20)
[2022-03-22] MEDS ORDERED: iohexol 350 MG/ML 50ML vial IV ONE (12:07)
[2022-03-22] MEDS ORDERED: clopidogrel 300mg tablet ONE (12:18)
[2022-03-22] MEDS ORDERED: ondansetron/PF 4mg/2ml inj IV PRN (12:50)
[2022-03-22] MEDS ORDERED: proCHLORperazine 10 MG/2 ml inj IV PRN (12:50)
[2022-03-22] MEDS ORDERED: HYDROcodone/acetaminophen 5mg/325mg tablet PO PRN (12:50)
[2022-03-22] MEDS ORDERED: normal saline 1000ml 1,000 ML IV SCH (12:55)
== END 2022-03-22 17:33 | disposition home or self-care (01) ==
LOC: SSTAY O 08:25
PROVIDERS: ATTEND Internal Medicine Cardiovascular Disease
DX: R94.39 Abnormal result of other cardiovascular function study (principal); R07.89 Other chest pain; I25.110 Atherosclerotic heart disease of native coronary artery with unstable angina pectoris; M81.0 Age-related osteoporosis without current pathological fracture; M19.90 Unspecified osteoarthritis, unspecified site; D64.9 Anemia, unspecified; H40.89 Other specified glaucoma; Z86.11 Personal history of tuberculosis; Z96.641 Presence of right artificial hip joint; Z98.51 Tubal ligation status; Z98.890 Other specified postprocedural states; Z90.710 Acquired absence of both cervix and uterus; Z87.891 Personal history of nicotine dependence; Z79.899 Other long term (current) drug therapy; Z72.89 Other problems related to lifestyle; Z83.3 Family history of diabetes mellitus; Z82.3 Family history of stroke
CPT/HCPCS: 36415; 80048; 83735; 85025; 85610; 93005; 93458; 99152; 99153; C1725; C1751; C1769; C1874; C1894; C9600; J1644; J2250; J3010; J3490; J7030; Q0163; Q9967; 85008; A4620; A5120

== ENCOUNTER 2025-01-23 13:30 | Emergency (ER) | payer BC, MEDICARE ==
[~2025-01-23] VITALS: Ht 157.5 cm; Wt 47.7 kg
[2025-01-23 13:30] VITALS: BP 107/79; PULSE 83; O2SAT 98
[~2025-01-23 13:30] MED LIST changes: +Probiotic; -SULF1TAB45 PO
[2025-01-23 14:13] LABS: BASOPHILS # (AUTO) 0.1 X10'3 (0-0.2); EOSINOPHILS # (AUTO) 0.1 X10'3 (0-0.9); HEMATOCRIT 44.6 % (35.0-45.0); HEMOGLOBIN 14.7 g/dl (12.0-16.0); LYMPHOCYTES % (AUTO) 14.8 % (21-51); MEAN CORPUSCULAR HEMOGLOBIN 32.1 PG (27.0-31.0); MEAN CORPUSCULAR VOLUME 97.2 FL (78-98); MEAN PLATELET VOLUME 7.8 FL (7.4-10.4); MONOCYTES # (AUTO) 1.5 X10'3 (0-0.9); MONOCYTES % (AUTO) 11.2 % (2-12); NEUTROPHILS # (AUTO) 9.7 X10'3 (1.8-7.7); PLATELET COUNT 348 X10'3 (140-440); RED BLOOD COUNT 4.59 X10'6 (4.20-5.60); RED CELL DISTRIBUTION WIDTH 15.7 % (11.5-14.5); WHITE BLOOD COUNT 13.5 X10'3 (4.5-11.0)
[2025-01-23 14:33] LABS: ALANINE AMINOTRANSFERASE 28 U/L (12-78); ALBUMIN 3.8 G/DL (3.4-5.0); ALBUMIN/GLOBULIN RATIO 0.9 (1.1-1.5); ALKALINE PHOSPHATASE 127 IU/L (46-116); ANION GAP 13 (8-16); ASPARTATE AMINO TRANSFERASE 26 U/L (10-37); BILIRUBIN,TOTAL 1.3 MG/DL (0.1-1.0); BLOOD UREA NITROGEN 22 MG/DL (7-18); BUN/CREATININE RATIO 24.2 (10.0-20.0); CALCIUM 10.1 MG/DL (8.5-10.1); CHLORIDE 102 MMOL/L (99-107); CREATININE 0.91 MG/DL (0.40-0.90); LIPASE 56 U/L (16-77); POTASSIUM 3.5 MMOL/L (3.5-5.1); SODIUM 141 MMOL/L (135-145); TOTAL CARBON DIOXIDE 25.7 MMOL/L (24-32); TOTAL PROTEIN 8.2 G/DL (6.4-8.2); eCRCL 34 ML/MIN; eGFR 59 ML/MIN
[2025-01-23 14:36] LABS: GLUCOSE 106 MG/DL (70-104)
[2025-01-23] MEDS: ondansetron/PF 4mg/2ml inj IV ONE (16:01)
[2025-01-23] MEDS ORDERED: iohexol 300mg/ml 100ml inj. ONE ×2 (16:21→16:37)
[2025-01-23] MEDS: morphine 4 MG/ML inj SYRINge IV ONE (16:21)
[2025-01-23] MEDS: normal saline 1000ML IV soln IVB ONE (17:10)
[2025-01-23 17:52] LABS: BILIRUBIN,URINE NEGATIVE (Neg); CLARITY,URINE CLEAR (Clear); COLOR,URINE YELLOW (Yellow); GLUCOSE, URINE NEGATIVE (Neg); KETONES,URINE 15 mg/dl (Neg); LEUKOCYTE ESTERASE ,URINE NEGATIVE (Neg); NITRITES, URINE POSITIVE (Neg); OCCULT BLOOD,URINE TRACE-INTACT (Neg); PH,URINE 8.5 (4.8-8.0); PROTEIN,URINE NEGATIVE (Neg); UROBILINOGEN,URINE 0.2 E.U/dL (0.2-1.0)
[2025-01-23 17:58] LABS: UA COLLECTION TYPE NON-SPECIFIED
[2025-01-23 18:04] LABS: BACTERIA,URINE 2+ /HPF (Neg); RBC,URINE 0-2 /HPF (0-2); SQUAMOUS EPITHELIAL CELL,UR FEW /LPF (FEW)
[2025-01-23] MEDS ORDERED: ONDA-243 PO (18:53)
[2025-01-23 19:15] VITALS: RESP 15; TEMP 98.4
[2025-01-23] MEDS: FOSFOMYCIN TROMETHAMINE 3 GM PACKET PO ONE (19:40)
== END 2025-01-23 19:45 | disposition home or self-care (01) ==
LOC: ER 13:30
DX: R11.2 Nausea with vomiting, unspecified (principal); N39.0 Urinary tract infection, site not specified
CPT/HCPCS: 36415; 74018; 74178; 80053; 81001; 83690; 85025; 87088; 96361; 96374; 96375; 99285; J2270; J2405; J7030; Q9967; 87186